=== PATIENT | female | born 1950 | race Caucasian/White ===

== ENCOUNTER → 2018-03-25 07:52 | Outpatient (CLI) | payer MEDICARE, OTHER, SELFPAY ==
--- NOTE | 2018-03-25 | DI.MG.S_ITS ---
BILATERAL DIGITAL SCREENING MAMMOGRAM 3D/2D WITH CAD: 03/25/2018 CLINICAL: Routine screening. Family history of breast cancer. Comparison is made to exams dated: 03/25/2017 mammogram, 02/29/2016 mammogram, and 01/10/2015 mammogram - [facility]. The tissue of both breasts is heterogeneously dense. This may lower the sensitivity of mammography. Current study was also evaluated with a Computer Aided Detection (CAD) system. There is 0.5 cm oval low density focal asymmetry with a circumscribed margin in the left breast at 7 o'clock anterior depth. No other significant masses, calcifications, or other findings are seen in either breast. IMPRESSION: INCOMPLETE: NEEDS ADDITIONAL IMAGING EVALUATION The 0.5 cm oval low density focal asymmetry in the left breast is indeterminate. An ultrasound is recommended. This exam was interpreted at Station ID: [id number]. NOTE: For mammograms, a report in lay terms will be sent to the patient. Approximately 15% of breast malignancies will not be visualized mammographically. In the management of a palpable breast mass, a negative mammogram must not discourage biopsy of a clinically suspicious lesion. Electronically Signed By: Jacob li/gilbert:03/25/2018 11:58:46 letter sent: Need Ultrasound ACR BI-RADS Category 0: Incomplete [id number]
== END ==
PROVIDERS: Family Provider Orthopaedic Surgery; PCP Family Medicine; Visit Provider Family Medicine
DX: Z12.31 Encounter for screening mammogram for malignant neoplasm of breast (principal); Z80.3 Family history of malignant neoplasm of breast
CPT/HCPCS: 77063; 77067

== ENCOUNTER → 2018-04-08 15:06 | Outpatient (CLI) | payer MEDICARE, OTHER, SELFPAY ==
--- NOTE | 2018-04-08 | DI.US.S_ITS ---
ULTRASOUND OF LEFT BREAST: 04/08/2018 CLINICAL: Patient returns for additional imaging over a suspected mass in the left breast. Comparison is made to exams dated: 03/25/2018 mammogram, 03/25/2017 mammogram, and 02/29/2016 mammogram - [facility]. Color flow ultrasound of the left breast was performed on the areas of interest. Pena scale images of the real-time examination were reviewed. IMPRESSION: NEGATIVE There is no sonographic evidence of malignancy. There is no sonographic abnormality seen in the left breast to correspond with the mammography finding which likely represents an ectatic blood vessel. Of note, this finding is present on multiple prior studies and has demonstrated stability over time. A 1 year screening mammogram is recommended. This exam was interpreted at Station ID: [id number]. Electronically Signed By: Britney garcia/:04/08/2018 16:01:32 letter sent: Normal Exam Ultrasound BI-RADS: 1 Negative
== END ==
PROVIDERS: PCP Family Medicine; Visit Provider Family Medicine
DX: R92.8 Other abnormal and inconclusive findings on diagnostic imaging of breast (principal)
CPT/HCPCS: 76642

== ENCOUNTER → 2018-06-08 09:05 | Outpatient (CLI) | payer MEDICARE, OTHER, SELFPAY ==
--- NOTE | 2018-06-08 | DI.CT.S_ITS ---
PROCEDURE: CT UE RT WO CON INDICATIONS: CHRONIC RIGHT SHOULDER PAIN TECHNIQUE: Noncontrast 1-1.5 mm thick sections acquired from the acromioclavicular joint to the inferior scapula, with coronal and sagittal reformatting. COMPARISON: None. FINDINGS: Image quality: Diagnostic. Bones: There is no acute fracture, dislocation, or suspicious osseous lesion present involving the osseous structures of the right shoulder. There are severe degenerative changes of the glenohumeral joint with prominent joint space narrowing, subchondral sclerosis, moderate-sized marginal osteophytes, and areas of degenerative cystic change. Mild articular surface of bony remodeling is present. There are severe degenerative changes of the acromioclavicular joint with prominent origin of osteophytes and areas of degenerative cystic change. The clavicle, imag right ribs comment imaged portions of the sternum, and imaged portions of the right spine are grossly unremarkable. Soft tissues: There is a prominent right shoulder joint effusion, containing small intra-articular joint bodies. No soft tissue masses are appreciated. No drainable or loculated fluid collections are evident. No significant lymphadenopathy is evident within the axilla. Please note that the ligaments, tendons, and cartilaginous structures of the shoulder are not adequately evaluated on CT. No significant atrophy of the rotator cuff muscles is evident to suggest a long-standing rotator cuff injury. Included portions of the right lung and mediastinum appear to be within normal limits. IMPRESSION: 1. No acute osseous abnormality of the right shoulder. 2. Severe degenerative changes of the glenohumeral and acromioclavicular joints. 3. Moderate sized glenohumeral joint effusion. 4. No significant rotator cuff muscle atrophy is appreciated to suggest a chronic rotator cuff injury. Dictated by: Jadon Briceño M.D. on 06/08/2018 at 8:49 Approved by: Jadon Briceño M.D. on 06/08/2018 at 9:14
== END ==
PROVIDERS: PCP Family Medicine; Visit Provider Orthopaedic Surgery
DX: M25.511 Pain in right shoulder (principal); M19.011 Primary osteoarthritis, right shoulder; M25.411 Effusion, right shoulder; G89.29 Other chronic pain
CPT/HCPCS: 73200

== ENCOUNTER → 2018-09-12 08:21 | Outpatient (CLI) | payer MEDICARE, OTHER, SELFPAY ==
[2018-09-12 08:38] LABS: RBC Urine None Seen (0-5/HPF)
[2018-09-12 09:23] LABS: Appearance Urine UA CLEAR; Bilirubin Urine UA NEGATIVE (NEGATIVE); Color Urine UA YELLOW; Glucose Urine UA NEGATIVE (Negative); Ketones Urine UA NEGATIVE (NEGATIVE); Leukocyte Esterase Urine UA NEGATIVE (NEGATIVE); Nitrite Urine UA NEGATIVE (Negative); Occult Blood Urine UA NEGATIVE (Negative); Protein Urine UA NEGATIVE (Negative); Specific Gravity Urine UA 1.025 (1.000-1.035); Urobilinogen Urine UA 0.2 E.U./dL (0.2)
[2018-09-12 09:47] LABS: Bacteria Urine Occasional (0-1); Culture Indicated Urine Cult Not Indicated; Squamous Epithelial Cell Urine 1-5 /HPF (0-5/HPF); WBC Urine 0-1/HPF (0-5/HPF)
[2018-09-12 10:09] LABS: Hemoglobin 12.9 g/dL (12.0-16.0); Mean Corpuscular Hemoglobin 31.1 PG (26-34); Mean Corpuscular Volume 91.6 fL (80-100); Platelet Count 258 X10^3/uL (150-400); Red Blood Cell Count 4.15 X10^6/uL (4.0-5.2); Red Cell Distribution Width 13.5 % (11.6-14.8)
[2018-09-12 10:24] LABS: Carbon Dioxide 28 mmol/L (22-32); Estimated Glomerular Filt Rate > 60.0 mL/min (>60); HEMOLYSIS < 15 (0-50); Sodium 140 mmol/L (137-145)
[2018-09-12 10:30] LABS: Transferrin 265 mg/dL (206-381)
[2018-09-12 10:48] LABS: Blood Urea Nitrogen 20 mg/dL (7-17); Calcium 9.9 mg/dL (8.4-10.2); Chloride 105 mmol/L (98-107); Glucose 84 mg/dL (80-110)
[2018-09-12 10:50] LABS: Hemoglobin A1C% w Est Avg Glu 5.1 % (4.0-6.0)
== END ==
PROVIDERS: PCP Family Medicine; Visit Provider Orthopaedic Surgery
DX: Z01.818 Encounter for other preprocedural examination (principal); E61.1 Iron deficiency; N39.0 Urinary tract infection, site not specified; R73.9 Hyperglycemia, unspecified
CPT/HCPCS: 36415; 80048; 81001; 83036; 84466; 85027; 93005; 93010

== ENCOUNTER 2018-09-28 06:07 | Inpatient (IN) | payer MEDICARE, OTHER, SELFPAY ==
[2018-09-15 08:28] VITALS: BMI 43.3
[2018-09-28] VITALS (20 sets, daily range): BP systolic 105–159; BP diastolic 56–82; PULSE 66–88; RESP 8–25; TEMP 36–37.3; O2SAT 93–100; BMI 41.7
--- NOTE | 2018-09-28 06:40 | DI.RAD.S_ITS ---
PROCEDURE: XR SHOULDER RT MIN 2V INDICATIONS: post op TECHNIQUE: 2 views of the shoulder were acquired. COMPARISON: [facility], , SHOULDER MINIMUM 2VIEW RIGHT, 07/10/2009, 16:35. FINDINGS: Bones: No fractures or dislocations. Expected postsurgical changes of right total shoulder arthroplasty. No suspicious bony lesions. Visualized ribs appear intact. Soft tissues: No suspicious soft tissue calcifications. IMPRESSION: Normal postoperative alignment after right shoulder arthroplasty, with a surgical drain overlying the operative bed. Dictated by: Sawyer Do M.D. on 09/28/2018 at 10:48 Approved by: Sawyer Do M.D. on 09/28/2018 at 10:50
[2018-09-28] MEDS: ACETAMINOPHEN 325 MG TABLET 975 MG PO ×3 (06:52→19:51)
[2018-09-28] MEDS: PREGABALIN 75 MG CAPSULE PO (06:52)
[2018-09-28] MEDS: CELECOXIB 200 MG CAPSULE PO (06:52)
[2018-09-28] MEDS: LACTATED RINGERS 1,000 ML 42 ML IV ×2 (07:00→10:38)
[2018-09-28] MEDS: MIDAZOLAM 2 MG/2 ML VIAL IV (07:36)
--- NOTE | 2018-09-28 07:37 | PM.PREOP ---
Pre-operative Note Interval Note History & Physical reviewed/Exam performed by Physician: Yes Changes to H&P: No
--- NOTE | 2018-09-28 07:39 | PM.OP.1 ---
Operative Date/Time/Diagnoses Date of procedure: 09/28/18 Time of procedure: 09:30 Pre-op diagnosis: Right shoulder osteoarthritis Post-op diagnosis: same Procedure & Clinicians Procedure: Right total shoulder replacement Same procedure as scheduled: Yes Indications: The patient has had progressively worsening right shoulder pain with radiographic changes consistent with arthritis. Non-operative management has failed and the patient has requested total shoulder replacement. The risks, benefits and alternatives to surgery were discussed with the patient prior to proceeding. Risks discussed included, but were not limited to, failure to relieve pain, stiffness, infection, nerve damage, deep venous thrombosis, pulmonary embolism, stroke, coma, heart attack, permanent paralysis and , as well as the potential need for eventual revision of the prosthetic. Surgeon: Ike Jackson [employer] Con[employer] Ironworker: Samia Zavala Click Yes if Unassisted: No Anesthesia Type: General, Peripheral nerve block and Local Operative Notes Findings: Significant osteoarthritis with large osteophytes. Closure Type: primary Specimen(s): none sent Prosthetic devices, grafts, tissues, transplants, or devices: Implants used in this procedure were manufactured by the [employer] and included an Altivate short stem total shoulder system with a size 12 humeral stem, a neutral humeral neck, a 46 x 16 mm offset humeral head and a 46 mm E plus all-polyethylene pegged glenoid. Applied: drain(s) and implant(s) Estimated Blood Loss (mL): 250 Blood products transfused: none Procedure in detail: The patient was seen in the pre-operative area, where the patient identified the right shoulder as the operative site and this was marked with my initials. The patient received pre-operative antibiotics, underwent an interscalene block, and was taken to the operating room and placed on the operative table in the supine position. After satisfactory anesthesia, a full ?time out? was performed. The patient was repositioned in the ?beach chair? position using a dedicated positioner. All pressure points were well padded, and the knees were slightly bent to prevent tension on the sciatic nerves. The right arm was prepared from the fingers to the base of the neck with ChloroPrep in the usual fashion and draped through sterile drapes. An approximately 15 cm incision was created, starting at the clavicle above the coracoid process and extended towards the deltoid insertion. The deltopectoral interval was used to access the shoulder. The cephalic vein was taken medially. A self retaining retractor was placed. The upper centimeter of the pectoralis major tendon was released. The ?three sisters? were identified and cauterized. The axillary nerve was palpated and protected throughout the case. The biceps was released from its groove and tenodesed over the top of the pectoralis major tendon. The subscapularis was released from the lesser tuberosity with a subscapularis peel and tagged for later repair. The shoulder was dislocated and a cutting guide was used for the proximal humeral osteotomy in 30 degrees of retroversion. A starter reamer was used followed by the cylindrical reamers. This continued in larger sizes until cortical bite was achieved. Sequential broaching was then performed until a line to line fit with the reamer occurred. A proximal humeral protector was then placed. We then removed the self-retaining retractor and placed retractors to access the glenoid. The subscapularis was released with a ?360 degree release? with care being taken to protect the axillary nerve with the inferior portion of this procedure. The remnant of labrum and biceps stump were removed. The appropriate size reamer was chosen with the glenoid sizer, and the guide pin placed. The glenoid was appropriately reamed. The guide for the peripheral holes was used. It was noted that the anteroinferior hole developed a nondisplaced fracture between the hole and the anterior glenoid rim. As a result, this hole was not filled with bone cement. This small crack did not appear to compromise stability of the implant. The center hole was enlarged. The trial glenoid was placed with good stability. We then cemented the final implant into place after irrigating the peg holes and drying them with thrombin-soaked Gelfoam. We returned our attention to the humerus, a trial humeral head was applied and a trial reduction performed. Stability was checked with 50% posterior translation with spontaneous reduction, 45? external rotation at the side with the subscapularis in the repaired position and 70? of internal rotation in the ?scarecrow position?. This was felt to be satisfactory and the appropriate implants were opened. Five holes were drilled along the humeral osteotomy and #2 Ethibond sutures placed for eventual subscapularis repair. The humeral prosthetic was impacted into the humerus. The humeral head was applied when the stem was still slightly proud and impacted to both seat the head and fully seat the stem. The joint was relocated one final time. The joint was irrigated and the subscapularis repaired to the previously placed sutures using Raffi-Aquiles sutures. The top of the subscapularis was closed to the leading edge of the supraspinatus with a figure of 8 #2 TiCron to close the rotator interval. A deep drain was placed and brought out supero-laterally. The deltopectoral interval was closed with interrupted 0 Vicryl. The subcutaneous layer was closed with 3-0 Vicryl, and the skin with a running 3-0 V-Lock suture and SteriStrips. An Aquacel Ag dressing was applied, the patient?s arm was placed in a sling, and the patient was taken to recovery having tolerated the procedure well. Complications: other (Nondisplaced crack between the anteroinferior hole and the anterior glenoid rim as noted above.) Condition: stable Disposition: PACU Plan for aftercare: The patient will be maintained on a standard total shoulder replacement protocol with passive range of motion limited to 90 degrees forward flexion, 0 degrees external rotation at the side, 0 degrees abduction and internal rotation to the body. The patient will receive aspirin and sequential compression devices for DVT prophylaxis. The patient will be discharged home when safe for the home environment, likely tomorrow.
--- NOTE | 2018-09-28 07:52 | SUR.PREOP ---
Block start time [0736] . Monitoring initiated and maintained throughout procedure. Oxygen and medications given per anesthesiologist instructions. Patient remained stable throughout procedure, no adverse reactions noted. Block end time [0748].
[2018-09-28] MEDS: CEFAZOLIN 2 GM/100 ML FROZ.PIGGY IV (08:05)
--- NOTE | 2018-09-28 08:29 | SUR.OPER ---
Beach chair with Schlein shoulder positioner. Lower body on padded OR bed. Head in foam padded head cradle, secured with straps. Non-operative arm secured <90 degrees abduction. Pillow under knees. Safety belt at thigh. Cloth tape over blanket over lower legs.
[2018-09-28] MEDS: BUPIVACAINE 0.5% W/ EPI (PF) VIAL 30 ML INJ (08:34)
[2018-09-28] MEDS: THROMBIN (RECOMBINANT) 5,000 UNIT VIAL 5000 UNIT TOP (08:34)
[2018-09-28] MEDS: fentaNYL 100 MCG/2 ML INJ 50 MCG IV ×4 (10:11→10:37)
[2018-09-28] MEDS: HYDROMORPHONE 2 MG INJ 0.25 MG IV ×6 (10:15→10:44)
--- NOTE | 2018-09-28 10:52 | SUR.PHASEI ---
REPORT CALLED TO [facility] ON ACUTE CARE FLOOR. PT IN STABLE CONDITION, VSS. IV SITE CLEAR AND INFUSING WITHOUT DIFFICULTLY. DRSG TO SURGICAL SITE OBSERVED TO BE C/D/I. HEMAVAC DRAIN IN PLACE AND DRAINING RED BLOOD. PT ABLE TO MOVE OPERATIVE EXTREMITY FINGERS, WARM TO TOUCH, PINK IN COLOR AND +PULSE. OPERATIVE ARM IN SLING. PT TOLERATING ICE CHIPS WITHOUT DIFFICULTLY AND DENIES ANY NAUSEA. PT APPEARS COMFORTABLE AT THIS TIME.
[2018-09-28] MEDS: LACTATED RINGERS 1,000 ML 125 ML IV ×2 (11:38→19:44)
[2018-09-28] MEDS: OXYCODONE IR 5 MG TABLET PO ×4 (13:09→23:45)
--- NOTE | 2018-09-28 14:15 | PC.NURSE ---
Post-op: Arrived to room 210 at 1110. Awake and alert, oriented X3. Reports some numbness/tingling residual in RUE, but sensation is returning. Strong radial pulses, cap refill <2 sec, hands warm and pink. Dressing to R shoulder C/D/I, sling in place and arm supported with pillow underneath when in bed. Hemovac compressed with sanguinous drainage noted. Medicated with Tylenol and Oxycodone for R shoulder pain, tolerating PO's without N/V. Just worked with PT and is back in bed. Stand-by assist per PT. Ice pack to R shoulder. Voided when OOB. Oriented to room and call light, able to make needs known. Bed alarm on, call light in reach.
--- NOTE | 2018-09-28 14:47 | PT.IIE ---
Current Diagnoses Primary osteoarthritis, right shoulder (09/28/18) Surgery Performed Operation Date: 09/28/18 07:45 Actual Procedures p Total Shoulder Arthroplasty(Right) - Ike Jackson MD Surgical History (Last Updated 09/15/18 @ 09:14 by Mary Ashton RN) History of ankle surgery (Acute) History of arthroplasty of right knee (Acute ~03/2012) History of arthroscopy of both knees (Acute) History of bilateral carpal tunnel release (Acute) History of colonoscopy (Acute) Hx of appendectomy (Acute ~1968) Hx of tonsillectomy (Acute) Status post bilateral cataract extraction (Acute) Status post epidural steroid injection (Acute) Medical History (Last Updated 09/15/18 @ 09:14 by Mary Ashton RN) Snoring (Inactive) Arthritis (Acute) Depression (Acute) Diverticulosis (Acute) H/O: hysterectomy (Acute ~1975) Osteoarthritis (Acute) Morbid obesity with body mass index of 40.0-49.9 (Chronic) Obstructive sleep apnea of adult (Chronic) Physical Therapy Inpatient Evaluation/Re-Eval M1 PT/OT-IP Prior Functional Status Start: 09/28/18 12:16 Freq: NEEDED Status: Active Protocol: Document 09/28/18 14:23 RS (Rec: 09/28/18 14:32 RS [id number]) Medical Review Prior Functional Status Medical History Reviewed Yes Diet/Fluid Consistency Regular Communication no known deficits Mobility and Gait ind without AD Activities of Daily Living and IADL's ind Social History Household Members spouse Living Arrangements House Number of Floors (Floors) One Floor Number of Stairs To Enter/Railing? 4STE, bilat rails M2 PT-IP Current Condition Start: 09/28/18 12:16 Freq: NEEDED Status: Active Protocol: Document 09/28/18 14:23 RS (Rec: 09/28/18 14:32 RS [id number]) Physical Therapy Current Condition Current Condition Evaluation Date 09/28/18 Treatment Diagnosis R TSA Onset Date 09/28/18 Precautions Shoulder Precautions Sling PROM Internal Rotation to Body No External Rotation No Abduction Forward Flexion to 90 degrees Pendulums Weight Bearing Status Weight Bearing Status Non-Weight Bearing M3 PT-IP Subjective Start: 09/28/18 12:16 Freq: NEEDED Status: Active Protocol: Document 09/28/18 14:23 RS (Rec: 09/28/18 14:32 RS [id number]) Subjective Physical Therapy Visit Type Type Initial Evaluation Visit Stop Time 14:23 M4 PT-IP Mobility and Gait Start: 09/28/18 12:16 Freq: NEEDED Status: Active Protocol: Document 09/28/18 14:23 RS (Rec: 09/28/18 14:47 RS [id number]) PT-Bed Mobility Assessment Supine to Sit Supine to Sit Standby Assistance Head of Bed Elevated Sit to Supine Sit to Supine Standby Assistance Scooting Scooting to Edge of Bed Standby Assistance PT-Transfer Assessment Sit to and From Stand Sit to and from Stand Standby Assistance Equipment Transfer Assistive Device None Transfers Transfer Destination Bed Toilet Transfer Technique walked and turn to sit Transfer Ability Level of Assist Standby Assistance Comments Mobility Comments Pt needing extra time to scoot to EOB, however, pt able to do all bed mobility and transfers without additional physical assist. Able to maintain NWB RUE. Gait Assessment Gait Gait Assistance Required: Standby Assistance Distance (Feet) 100 Assistive Devices Assistive Device Gait Belt Gait Deviations General Gait Pattern Decreased Stride Length Wide Based Gait Comments Gait Comments Pt's gait is slow with wide and short steps, but overall stable, no LOB. Stair Climbing Assessment Comments Stair Climbing Comments not tested PT-Balance Assessment Sitting Balance and Reactions Static Sitting Balance Ability Normal Dynamic Sitting Balance Ability Normal Standing Balance and Reactions Static Standing Balance Ability Normal Dynamic Standing Balance Ability Good Device Used none M5 PT-IP Objective Assessments Start: 09/28/18 12:16 Freq: NEEDED Status: Active Protocol: Document 09/28/18 14:23 RS (Rec: 09/28/18 14:47 RS [id number]) Orientation Orientation/Cognition Level of Alertness Alert Orientation Name Language Function Ability No Deficits Noted Safety Awareness Understands Safety Issues Memory Description No Deficits Noted Gross Range of Motion Upper Extremity ROM Assessment Right Impaired Lower Extremity ROM Assessment Within Functional Limits Strength Upper Extremity Strength Assessment Right Impaired Lower Extremity Strength Assessment Within Functional Limits M6 PT-IP Treatment Start: 09/28/18 12:16 Freq: NEEDED Status: Active Protocol: Document 09/28/18 14:23 RS (Rec: 09/28/18 14:47 RS [id number]) Physical Therapy Treatment Education Education Provided Precautions Weight Bearing Status Safety M7 PT-IP Assessment and Plan Start: 09/28/18 12:16 Freq: NEEDED Status: Active Protocol: Document 09/28/18 14:23 RS (Rec: 09/28/18 14:47 RS [id number]) PT Summary Assessment and Plan Potential Rehabilitation Potential Excellent Status of Condition at Evaluation Stable Summary Impairments ROM Strength Gait Activity Tolerance Assessment Summary Pt is POD#0 R TSA. Pt able to mobilize with SBA, not quite ready to trial stairs. Pt needs more time for all mobility but is steady and able to maintain RUE precautions. Pt will be safe to discharge home tomorrow (or when medically ready) after one more PT session for stair trial. Pt will benefit from OPPT once cleared by ortho surgeon. Goals Bed Mobility Goal Independent Transfer Goal Independent Gait Goal Independent Gait Distance 150 Other Goals up/down 4 steps w/ bilat rails w/ SBA Days to Meet Goals 2 Frequency of Treatment Frequency Of Treatment Once a Day Treatment Plan Physical Therapy Treatment Plan Bed Mobility Training Transfer Training Gait Training Therapeutic Exercise Balance Retraining Post Op Education Discharge Planning Hot or Cold Pack Neuromuscular Re-ed Coordination Retraining Manual Therapy Other Recommendations and Next Treatment likely only 1 more session Focus Friday for stairs then can d/ c Recommendations To Nursing Amount of Assist Needed Standby Assistance Discharge Recommendations PT Discharge Recommendations Home with Assistance Outpatient PT
[2018-09-28] MEDS: DOCUSATE 100 MG CAPSULE PO (19:51)
[2018-09-28] MEDS: ASPIRIN EC 81 MG TABLET PO (19:51)
--- NOTE | 2018-09-28 22:55 | PC.NURSE ---
Pt A/O x4, right shoulder aquacell CDI, sling in place, CMS+, radial P+, nurse clinician strong. HV-25mL sang out. 96%RA. L hand LR @ 125, to be DC'd in AM. percolone 5mg PO @ 1610 and 2000 effective for pain. SBA to BRP. Bed alarm on
[2018-09-29] MEDS: OXYCODONE IR 5 MG TABLET PO ×2 (04:17→08:11)
[2018-09-29 05:52] LABS: Hematocrit 32.2 % (36-46); Hemoglobin 11.2 g/dL (12.0-16.0); Mean Corpuscular HGB Conc 34.7 % (30-36); Mean Corpuscular Hemoglobin 31.4 PG (26-34); Mean Corpuscular Volume 90.5 fL (80-100); Platelet Count 267 X10^3/uL (150-400); Red Blood Cell Count 3.55 X10^6/uL (4.0-5.2); Red Cell Distribution Width 12.9 % (11.6-14.8); White Blood Cell Count 11.6 X10^3/uL (4.5-11.0)
[2018-09-29 05:54] VITALS: BP 103/54; PULSE 77; RESP 16; TEMP 36.9; O2SAT 93
[2018-09-29] MEDS: ACETAMINOPHEN 325 MG TABLET 975 MG PO (05:58)
[2018-09-29 07:30] VITALS: BP 116/54; PULSE 73; RESP 18; TEMP 36.9; O2SAT 95
--- NOTE | 2018-09-29 07:51 | PM.DS.1 ---
History of Present Illness Date Patient Seen: 09/29/18 Time Patient Seen: 07:51 Chief complaint: [id number] Narrative: The history and physical are contained in the chart and a previously completed note. Please refer to that note for this information. Discharge Providers Date of admission: 09/28/18 06:07 Discharge Date: 09/29/18 Primary care physician: Alma Rosa Ramírez MD Consults: 09/28/18 11:22 Consult to Discharge Planning Routine Comment: Consult to Physical Therapy Evaluate & Treat Comment: Physician Instructions: Evaluate and Treat Discharge provider: Ike Jackson MD Summary Discharge Diagnosis: 1. Right shoulder osteoarthritis 2. Nondisplaced fracture of the right glenoid with preparation of the glenoid for implant placement 3. Mild post hemorrhagic anemia Hospital Course: The patient was admitted to the hospital and taken directly to the operating room on September 28, 2018. She underwent a right total shoulder replacement. During preparation of the glenoid a crack appeared between the anterior inferior hole and the anterior edge of the glenoid. This was nondisplaced and did not affect implant stability. The patient had initial difficulty with pain control but this resolved and on postoperative day 1 she was ready for discharge home. Status at Discharge Cognitive/behavioral status at discharge: oriented Functional status at discharge: independent ambulation Overall status at discharge: patient is progressing back to baseline Time Spent with Patient Less than 30 minutes Exam Vital Signs (past 8 hours): - 09/29/18 05:54 Temperature 98.4 F Pulse Rate 77 Respiratory Rate 16 Blood Pressure 103/54 L Pulse Oximetry 93 Oxygen Delivery Method Room Air Oxygen Flow Rate 0 Narrative Exam Narrative: Right shoulder wound is dressed. There is no drainage on the bandage. Light touch is intact in the radial, ulnar, median, musculocutaneous and axillary nerve distribution. She can extend her thumb, abduct her thumb, abduct her fingers and can fire her biceps and deltoid. Objective Labs Result Diagrams: 09/29/18 05:26 Labs: Laboratory Results - last 24 hr 09/29/18 05:26 WBC 11.6 H RBC 3.55 L Hgb 11.2 L Hct 32.2 L MCV 90.5 MCH 31.4 MCHC 34.7 RDW 12.9 Plt Count 267 Discharge Plan Discharge Plan Patient Disposition: Home Discharge Med Rec/Prescriptions Prescriptions: New acetaminophen 325 mg Tablet 975 mg PO TID 30 Days Qty: 270 RF: 0 aspirin 81 mg Tablet,Delayed Release (Dr/Ec) 81 mg PO BID 42 Days Qty: 84 RF: 0 oxycodone 5 mg Tablet 5 mg PO Q3HR PRN (Reason: Pain, Moderate (4-6)) Qty: 40 RF: 0 Continued TheraTears 0.25 % Drops 1 drp EYE-BOTH PRN PRN (Reason: Dry Eye(S)) Qty: 0 RF: 0 Vitamin D3 4,000 unit Capsule 4,000 unit PO DAILY RF: 0 Respironics DreamStation CPAP Qty: 1 RF: 0 Follow up/Referrals: Alma Rosa Ramírez MD [Primary Care Provider] - Provider Discharge Instructions Diet: Diet as Tolerated and Regular Activity: You may use her right hand in front of your body below shoulder level. You may remove the sling for pendulum exercises and for hygiene. Otherwise leave the sling in place. Cold/Heat Therapy: Apply ice to the right shoulder for 15 minutes of every hour as needed for pain. Skin/Wound/Dressing Care Report to your healthcare provider any signs of infection, such as:: chills, fever, night sweats, increased pain, unusual drainage and unusual redness Dressing: Leave the dressing in place until your follow-up. You may shower with the dressing in place. If the center strip of the dressing becomes saturated with either water or blood please call the office to have it changed. Visit Report/Discharge Packet Instructions: DI for Shoulder Replacement Stand Alone Forms: Surgery Discharge Discharge Data Primary Care Provider: Alma Rosa Ramírez Attending Provider: Ike Jackson Admit Date/Time: 09/28/18 06:07 Quality VTE Deep Vein Thrombosis/Pulmonary Embolism Present on Admission: No
[2018-09-29] MEDS: ASPIRIN EC 81 MG TABLET PO (08:11)
[2018-09-29] MEDS: DOCUSATE 100 MG CAPSULE PO (08:11)
--- NOTE | 2018-09-29 08:49 | PC.NURSE ---
Addendum entered by Zuri Dyson R.N. 09/29/18 10:57: Discharge: IV dc'd intact earlier this morning. Reviewed all d/c instructions thoroughly with patient and . She filled her scripts prior to discharge and has them ready at home. Patient understands to call MD w/ s/sx infection, or with any other concerns that arise prior to follow up. Verbalized understanding of all information and stated no further questions. Walked out to private vehicle accompanied by nursing staff. All personal belongings collected and sent home with patient. Addendum entered by Zuri Dyson R.N. 09/29/18 09:21: Patient was thinking that OT was going to see her today before she leaves. She had no OT order. This film writer spoke to Dr Jackson (via his nurse) and he said that he would only typically order OT if PT deemed it necessary. This film writer will confirm with PT, but based on discussion earlier this morning it didn't sound like PT thought it was indicated. Patient resting quietly in bed with eyes closed. Respirations regular and unlabored, 0 on FLACC score. Call light in reach. Original Note: Shift summary: Awake and alert, oriented X3. Pain in R shoulder well-managed with scheduled Tylenol, PRN Oxycodone and ice pack. RUE in sling, supported by pillows. Reports normal sensation in all extremities, strong radial pulses, cap refill <2 sec. Dressing to R shoulder C/D/I. Hemovac dc'd per new order, good hemostasis. Lungs CTA, HRR. Denies N/V, tolerating PO's well. IV dc'd intact (per patient request) w/ plan to d/c home later today. Resting back in bed after sitting up for breakfast. Agrees to call if she needs to get OOB. Call light in reach.
--- NOTE | 2018-09-29 10:44 | PT.IPTN ---
Current Diagnoses Primary osteoarthritis, right shoulder (09/28/18) Surgery Performed Operation Date: 09/28/18 07:45 Actual Procedures p Total Shoulder Arthroplasty(Right) - Ike Jackson MD Physical Therapy Treatment Note M2 PT-IP Current Condition Start: 09/28/18 12:16 Freq: NEEDED Status: Active Protocol: Document 09/28/18 14:23 RS (Rec: 09/28/18 14:32 RS [id number]) Physical Therapy Current Condition Current Condition Evaluation Date 09/28/18 Treatment Diagnosis R TSA Onset Date 09/28/18 Precautions Shoulder Precautions Sling PROM Internal Rotation to Body No External Rotation No Abduction Forward Flexion to 90 degrees Pendulums Weight Bearing Status Weight Bearing Status Non-Weight Bearing M3 PT-IP Subjective Start: 09/28/18 12:16 Freq: NEEDED Status: Active Protocol: Document 09/29/18 10:10 CLB (Rec: 09/29/18 10:44 CLB [id number]) Subjective Physical Therapy Visit Type Type Treatment Note Visit Start Time 10:10 Visit Stop Time 10:25 Total Visit Minutes 15 Number of MATHEMATICS LECTURER Visits 1 Physical Therapy Visit Comments Patient Comments Pt eager to trial stairs and go home. Therapy Pain Assessment Pain When Pain Assessed At Rest Pain Present Pain Present Denied Pain M4 PT-IP Mobility and Gait Start: 09/28/18 12:16 Freq: NEEDED Status: Active Protocol: Document 09/29/18 10:10 CLB (Rec: 09/29/18 10:44 CLB [id number]) PT-Bed Mobility Assessment Supine to Sit Supine to Sit Standby Assistance Head of Bed Elevated Sit to Supine Sit to Supine Standby Assistance Scooting Scooting to Edge of Bed Standby Assistance PT-Transfer Assessment Sit to and From Stand Sit to and from Stand Standby Assistance Equipment Transfer Assistive Device None Transfers Transfer Destination Bed Transfer Technique walked and turn to sit Transfer Ability Level of Assist Standby Assistance Comments Mobility Comments Pt required SBA only for all bed mobility and transfer. Gait Assessment Gait Gait Assistance Required: Standby Assistance Distance (Feet) 150 Assistive Devices Assistive Device Gait Belt Gait Deviations General Gait Pattern Decreased Stride Length Wide Based Gait Comments Gait Comments Pt continues to have good balance and safety awareness w /o LOB with ambulation. Stair Climbing Assessment Evaluation Level of Assist On Stairs Standby Assistance Devices Stair Climbing Assistive Devices Left Railing Technique/Endurance Stair Climbing Direction Ascend and Descend Stair Climbing Technique Step to Step Number of Steps Climbed 3 Query Text: Stair Climbing Set # Repetitions (reps) 2 Comments Stair Climbing Comments Pt safe with stair climbing. present for SBA. PT-Balance Assessment Sitting Balance and Reactions Static Sitting Balance Ability Normal Dynamic Sitting Balance Ability Normal Standing Balance and Reactions Static Standing Balance Ability Normal Dynamic Standing Balance Ability Good Device Used none M5 PT-IP Objective Assessments Start: 09/28/18 12:16 Freq: NEEDED Status: Active Protocol: Document 09/28/18 14:23 RS (Rec: 09/28/18 14:47 RS [id number]) Orientation Orientation/Cognition Level of Alertness Alert Orientation Name Language Function Ability No Deficits Noted Safety Awareness Understands Safety Issues Memory Description No Deficits Noted Gross Range of Motion Upper Extremity ROM Assessment Right Impaired Lower Extremity ROM Assessment Within Functional Limits Strength Upper Extremity Strength Assessment Right Impaired Lower Extremity Strength Assessment Within Functional Limits M6 PT-IP Treatment Start: 09/28/18 12:16 Freq: NEEDED Status: Active Protocol: Document 09/28/18 14:23 RS (Rec: 09/28/18 14:47 RS [id number]) Physical Therapy Treatment Education Education Provided Precautions Weight Bearing Status Safety M7 PT-IP Assessment and Plan Start: 09/28/18 12:16 Freq: NEEDED Status: Active Protocol: Document 09/29/18 10:10 CLB (Rec: 09/29/18 10:44 CLB [id number]) PT Summary Assessment and Plan Potential Rehabilitation Potential Excellent Status of Condition at Evaluation Stable Summary Impairments ROM Strength Gait Activity Tolerance Assessment Summary Pt is doing well with all mobility, transfers, gait and stair climbing with SBA. present for stair climbing and is able to assist pt with SBA for stair climbing. Discussed with pt mobility of shoulder, performing pendulums and donning/doffing brace. Goals Bed Mobility Goal Independent Transfer Goal Independent Gait Goal Independent Gait Distance 150 Other Goals up/down 4 steps w/ bilat rails w/ SBA Days to Meet Goals 2 Frequency of Treatment Frequency Of Treatment Once a Day Treatment Plan Physical Therapy Treatment Plan Bed Mobility Training Transfer Training Gait Training Therapeutic Exercise Balance Retraining Post Op Education Discharge Planning Hot or Cold Pack Neuromuscular Re-ed Coordination Retraining Manual Therapy Other Recommendations and Next Treatment Pt safe to d/c home with Focus to assist. Recommendations To Nursing Amount of Assist Needed Standby Assistance Discharge Recommendations PT Discharge Recommendations Home with Assistance Outpatient PT
--- NOTE | 2018-09-29 12:07 | CM.DANOTE ---
DCP/Assessment: Reviewed chart. Patient is a 68yr old female admitted for right TSA performed on 09-28-[address] Jackson. PCP is Dr. Ramírez. Primary payor is 1)Medicare 2)[facility]. Attempted to meet with patient to explain/introduce CM team role. Patient had already discharged at time of MICROFILMING DOCUMENT PREPARER visit with no identified d/c planning needs. P: Home today. MILDRED Bravo Discharge Planning/Care Management CM Discharge Assessment Start: 09/29/18 12:04 Freq: Status: Discharge Protocol: Document 09/29/18 12:05 KJS (Rec: 09/29/18 12:07 KJS [id number]) Discharge Planning Assessment Assigned Braider Tender MILDRED Bravo Contact Information Bharti Paulino (sister) [phone] Advance Directives? No: Declines further information History Provided By Patient Medical Record Prior Living Arrangements House Household Members spouse Type of transporation used prior to Drives own vehicle admit Independent with ADL's Yes Is patient alert and oriented? Yes Caregiver for Another No Barriers to Discharge No Discharge Plan Home Additional Comment None requested Review Status In Process Next Review Type Continued Stay Review Pre-Anesthesia Assessment Start: 09/15/18 08:28 Freq: Status: Discharge Protocol: Document 09/15/18 08:28 CAB (Rec: 09/15/18 09:32 CAB [id number]) Pre-Anesthesia Assessment Patient Also Known As (NENITA) Zenobia Patient Information Reviewed Via Phone Assessment Assessment Completed With Patient Diagnostic Results BMP/CMP CBC EKG Urinalysis Comment Labs/EKG @ [facility] 09/12/18 Primary Care Provider Alma Rosa Ramírez Seen Specialist in Last 12 Months Yes Specialist Seen Orthopedist Primary Language Slovenian Development Executive Required No Height 152.4 cm Weight 100.698 kg Body Mass Index (BMI) 43.3 Hearing Ability Normal Visual Impairment No Limitations Visual Assist Magnifying Glass Dentition Type Teeth, Natural Present Teeth, Missing Barriers to Learning None Other Aids Yes: CPAP Hx Anesthesia Reactions Yes: N/V s/p last wrist surgery Hx Family Anesthesia Reaction No Hx Malignant Hyperthermia No Hx Blood Transfusions No Anesthesia Review Requested No Sales Assistant Entertainment And Media No alcohol intake current alcohol intake frequency holidays/special occasions only Smoking Status Former smoker how long ago did patient quit smoking Quit 17-18 years ago Substance Use Type does not use Pain Present Pain Reported Musculoskeletal Symptoms Abnormal Gait Joint Pain Limited Range of Motion History of Falling (Recent or History of Yes ) Patient is completely paralyzed or No completely immobile Mental Status Oriented to own ability Is patient on oxygen? No Does patient have NAYAK/SOB No Hx Sleep Apnea Yes CPAP/BIPAP use prescribed and used routinely Will Bring CPAP/BIPAP DOS Yes Currently Taking a Beta Rodolfo No Can You Climb a Flight of Stairs Without No SOB Hx Chest Pain No Hx SOB No Hx Syncope or Dizziness No Anti-Coagulant Therapy No Has a Tavern Car Attendant No Cardiac Testing No Hx Pacemaker/ICD No Pacemaker Rep Required? No Cardiac Clearance Received Not Applicable Diet Type At Home Regular dysphagia No Bladder Pattern Incontinent, Stress Urgency Urinary Catheter Present No Hx Urinary Self Catheterization No Diabetes No Patient No Lactating No Hx Drug Resistant Organism Yes: C-diff 2017 Presence of External or Internal Medical Yes: CPAP, right knee Devices prosthesis, bilateral eye lens Have you traveled outside the [facility] in the last 30 days? Marital Status Lives With spouse Prior Living Arrangements House Number of Floors (Floors) Two Floors Support System Spouse Does the Patient Have Assistance After Yes Surgery Patient Discharge Plan Description Return Home Comment Pt advised overnight length of stay per surgeon's office Feels Safe in Current Environment Yes Been Physically Hurt or Threatened By a No Person in Current Environment Do you have thoughts of harming yourself None or others? Are you currently considering suicide? No Do you have a plan to hurt yourself or No Plan others? Do You Have Any Spiritual Beliefs That No May Affect Your HC Choices? Do You Have Any Cultural Practices That No May Affect Your HC Choices? Spiritual Referral None Who Can We Speak to About Patient's Care Family, friends Identifying Code for Release of Patient Declines to issue Information Health Care Proxy/Next of Kin Evaristo () Health Care Proxy Emergency Contact Name Evaristo () Emergency Contact Advance Directives? No: Declines further information Power of Farm Rancher Yes Power of Farm Rancher Name Evaristo () Power of Farm Rancher PAC Instructions Bring CPAP/BIPAP Medications to take/avoid Nasal antibiotic No ETOH/petroleum product on skin DOS NPO Post-op transportation Pre-surgical wash Sturdy shoes/comfortable clothes Do not bring valuables and remove jewelry
== END 2018-09-29 10:59 | disposition home or self-care (01) | DRG 483 ==
PROVIDERS: Admitting Provider Orthopaedic Surgery; PCP Family Medicine; Visit Provider Orthopaedic Surgery
PROC: 0RQJ0ZZ Repair Right Shoulder Joint, Open Approach (ICD-10-PCS; CPT 23472; principal; 2018-09-28 07:45)
DX: M19.011 Primary osteoarthritis, right shoulder (principal); M96.69 Fracture of other bone following insertion of orthopedic implant, joint prosthesis, or bone plate; M25.711 Osteophyte, right shoulder
CPT/HCPCS: 36415; 64415; 73030; 85027; 97116; 97161; 97530; C1776; J0690; J1100; J1170; J2250; J2405; J2704; J3010

== ENCOUNTER → 2019-04-10 09:37 | Outpatient (CLI) | payer MEDICARE, OTHER, SELFPAY ==
[2018-09-28 12:59] VITALS: BMI 41.7
--- NOTE | 2019-04-10 | DI.MG.S_ITS ---
BILATERAL DIGITAL SCREENING MAMMOGRAM 3D/2D WITH CAD: 04/10/2019 CLINICAL: Routine screening. Family history of breast cancer. Comparison is made to exams dated: 03/25/2018 mammogram, 03/25/2017 mammogram, and 02/29/2016 mammogram - [facility]. The tissue of both breasts is heterogeneously dense. This may lower the sensitivity of mammography. Current study was also evaluated with a Computer Aided Detection (CAD) system. No significant masses, calcifications, or other findings are seen in either breast. There has been no significant interval change. IMPRESSION: NEGATIVE There is no mammographic evidence of malignancy. A 1 year screening mammogram is recommended. This exam was interpreted at Station ID: [id number]. NOTE: For mammograms, a report in lay terms will be sent to the patient. Approximately 15% of breast malignancies will not be visualized mammographically. In the management of a palpable breast mass, a negative mammogram must not discourage biopsy of a clinically suspicious lesion. Electronically Signed By: Mehul mejia/gilbert:04/12/2019 07:48:13 letter sent: Normal Exam ACR BI-RADS Category 1: Negative 3341F
== END ==
PROVIDERS: PCP Family Medicine; Visit Provider Family Medicine
DX: Z12.31 Encounter for screening mammogram for malignant neoplasm of breast (principal); Z80.3 Family history of malignant neoplasm of breast
CPT/HCPCS: 77063; 77067

== ENCOUNTER → 2019-09-09 07:55 | Outpatient (CLI) | payer MEDICARE, OTHER, SELFPAY ==
[2018-09-28 12:59] VITALS: BMI 41.7
--- NOTE | 2019-09-09 | DI.RAD.S_ITS ---
PROCEDURE: XR CHEST 2V INDICATIONS: shortness of breath TECHNIQUE: 2 views of the chest were acquired. COMPARISON: [facility], CHEST 2 VIEW, 07/10/2009, 16:36. [facility], CHEST 2 VIEW, 05/23/2008, 9:25. FINDINGS: Surgical changes and devices: Right humerus hemiarthroplasty. Lungs and pleura: Minimally prominent interstitial markings. No pleural effusions or pneumothorax. Mediastinum: Mediastinal contours are normal. Heart size is within normal limits. Bones and chest wall: No suspicious bony abnormalities. Soft tissues appear unremarkable. IMPRESSION: Question of pulmonary vasculature engorgement. No pleural effusion. Dictated by: Rubin Abernathy M.D. on 09/09/2019 at 8:57 Approved by: Rubin Abernathy M.D. on 09/09/2019 at 9:03
--- NOTE | 2019-09-09 | DI.ECHO.S_ITS ---
[facility]---------+ [facility] +---------+ : : [address] [place] : : : : [id number] : : : : Phone: [phone]+ Echocardiogram Report + + :Name: ZOË QUINTERO Study Date: 09/09/2019 Height: 60 in : :[facility] Weight: 224 lb : : Gender: Female BSA: 2.0 m2 : :: 1950 Age: 69 yrs BP: 145/64 mmHg: :Reason For Study: EDEMA, SHORTNESS OF BREATH : :Ordering Physician: Dr. St : :Ramírez Performed By: Marry Robin : :Referring: VENU RAMÍREZ : + + Interpretation Summary 1) Normal left ventricular size, thickness, wall motion, and systolic function (EF 60-65%). 2) Normal right ventricular size and function. 3) No significant valvular abnormalities. 4) The right ventricular systolic pressure is estimated to be at least 20 mmHg based on an estimated right atrial pressure of 3 mm Hg. 5) No prior Echo available for comparison. Procedure: A two-dimensional transthoracic echocardiogram with color flow and Doppler was performed. The study quality was technically adequate. There is no prior echocardiogram noted for this patient. The patient was in sinus bradycardia with heart rates between 50-60 bpm during the exam. Left Ventricle: The left ventricle is normal in size and wall thickness. The ejection fraction is estimated to be 60-65%. Left ventricular systolic function is normal without focal wall motion abnormalities. Right Ventricle: The right ventricle is normal in size and function. Atria: Both atria are normal in size. There is no Doppler evidence for an interatrial shunt. Mitral Valve: The mitral valve is normal in structure and function. There is mild mitral regurgitation. Aortic Valve: The aortic valve is trileaflet. The aortic valve opens well. There is no aortic valve stenosis. No aortic regurgitation is present. Tricuspid Valve: The tricuspid valve is normal in structure and function. There is mild tricuspid regurgitation. The right ventricular systolic pressure is estimated to be at least 20 mmHg based on an estimated right atrial pressure of 3 mm Hg. Pulmonic Valve: The pulmonic valve is not well seen, but is grossly normal. There is no pulmonic valvular regurgitation. Great Vessels: The aortic root is normal size. The dimensions of the ascending aorta are normal. The IVC is of normal diameter and collapses greater than 50% with a sniff. This suggests a low right atrial pressure of 3 mm Hg. Pericardium/ Pleura There is no pericardial effusion. There has been no significant change since the previous study. MMode/2D Measurements & Calculations LVIDd: 5.1 cm LVOT diam: 2.0 cm LVIDs: 3.3 cm Ao root diam: 2.9 cm FS: 35.7 % asc Aorta Diam: 2.9 cm EPSS: 0.91 cm Ao Arch Diam (Prox Trans): 2.9 cm IVSd: 0.90 cm LVPWd: 0.77 cm LV thorpe. diameter/BSA (cm/m^2): 2.6 LV sys. diameter/BSA (cm/m^2): 1.7 LA A2 area: 20.7 cm2 RA long axis: 4.9 cm LA A4 area: 15.8 cm2 RA area: 12.9 cm2 LA length (vol): 4.9 cm RA vol: 29.0 ml LA vol: 56.4 ml RA : 14.8 ml/m2 LA vol index: 28.8 ml/m2 IVC diam: 1.6 cm RVD1 (basal): 3.1 cm TAPSE: 2.3 cm Doppler Measurements & Calculations Ao V2 max: 166.8 cm/sec LVOT Max Rambo: 116.5 cm/sec Ao V2 mean: 103.0 cm/sec LV V1 max P.4 mmHg Ao max P.1 mmHg LV V1 VTI: 25.0 cm Ao mean P.1 mmHg YON(I,D): 2.4 cm2 Ao V2 VTI: 34.6 cm YON(V,D): 2.3 cm2 sev ratio: 0.72 YON indexed to BSA (cm^2/m^2): 1.2 MV E max rambo: 94.9 cm/sec TR max rambo: 207.8 cm/sec MV A max rambo: 117.5 cm/sec TR max P.3 mmHg MV E/A: 0.81 PA V2 max: 89.6 cm/sec Med Peak E' Rambo: 6.6 cm/sec PA V2 mean: 58.2 cm/sec E/E' med: 14.3 PA mean P.6 mmHg Lat Peak E' Rambo: 10.9 cm/sec E/E' lat: 8.7 E/e' average: 11.5 MV dec time: 0.26 sec SV(LVOT): 82.0 ml Reading Physician:01:07 PM
== END ==
PROVIDERS: PCP Family Medicine; Referring Provider Family Medicine; Visit Provider Family Medicine
DX: I08.1 Rheumatic disorders of both mitral and tricuspid valves (principal); R06.02 Shortness of breath; R60.9 Edema, unspecified
CPT/HCPCS: 71046; 93306

== ENCOUNTER → 2019-09-24 15:35 | Outpatient (CLI) | payer MEDICARE, OTHER, SELFPAY ==
[2018-09-28 12:59] VITALS: BMI 41.7
--- NOTE | 2019-09-24 | DI.US.S_ITS ---
PROCEDURE: US PERIPH VENOUS LOW EXTREM BI INDICATIONS: BILATERAL LEG SWELLING TECHNIQUE: Real-time imaging, as well as color and pulse Doppler interrogation, were performed of the deep veins of both legs from the inguinal ligament to the popliteal fossa. COMPARISON: None. FINDINGS: Right: The common femoral, femoral and popliteal veins are normally compressible, and free of intraluminal thrombus. Color and pulse Doppler demonstrate normal phasic intravascular flow. There is normal augmentation response to distal compression maneuver. Left: The common femoral, femoral and popliteal veins are normally compressible, and free of intraluminal thrombus. Color and pulse Doppler demonstrate normal phasic intravascular flow. There is normal augmentation response to distal compression maneuver. This study is limited by body habitus. IMPRESSION: Negative for deep venous thrombosis. Dictated by: Willie Stoddard M.D. on 09/24/2019 at 16:33 Approved by: Willie Stoddard M.D. on 09/24/2019 at 16:33
== END ==
PROVIDERS: PCP Family Medicine; Referring Provider Family Medicine; Visit Provider Family Medicine
DX: M79.89 Other specified soft tissue disorders (principal)
CPT/HCPCS: 93970

== ENCOUNTER → 2019-10-12 13:39 | Outpatient (CLI) | payer MEDICARE, OTHER, SELFPAY ==
[2018-09-28 12:59] VITALS: BMI 41.7
== END ==
PROVIDERS: PCP Family Medicine; Referring Provider Family Medicine; Visit Provider Family Medicine
DX: M85.852 Other specified disorders of bone density and structure, left thigh (principal); Z78.0 Asymptomatic menopausal state; Z87.891 Personal history of nicotine dependence
CPT/HCPCS: 77080

== ENCOUNTER → 2020-04-11 15:43 | Outpatient (CLI) | payer MEDICARE, OTHER, SELFPAY ==
[2018-09-28 12:59] VITALS: BMI 41.7
--- NOTE | 2020-04-11 | DI.MG.S_ITS ---
BILATERAL DIGITAL SCREENING MAMMOGRAM 3D/2D WITH CAD: 04/11/2020 CLINICAL: Routine screening. Family history of breast cancer. Comparison is made to exams dated: 04/10/2019 mammogram, 03/25/2018 mammogram, and 03/25/2017 mammogram - [facility]. The tissue of both breasts is heterogeneously dense. This may lower the sensitivity of mammography. Current study was also evaluated with a Computer Aided Detection (CAD) system. No significant masses, calcifications, or other findings are seen in either breast. There has been no significant interval change. IMPRESSION: NEGATIVE There is no mammographic evidence of malignancy. A 1 year screening mammogram is recommended. This exam was interpreted at Station ID: [id number]. NOTE: For mammograms, a report in lay terms will be sent to the patient. Approximately 15% of breast malignancies will not be visualized mammographically. In the management of a palpable breast mass, a negative mammogram must not discourage biopsy of a clinically suspicious lesion. Electronically Signed By: Britney garcia/gilbert:04/11/2020 16:53:29 letter sent: Normal Exam ACR BI-RADS Category 1: Negative 3341F
== END ==
PROVIDERS: PCP Family Medicine; Referring Provider Family Medicine; Visit Provider Family Medicine
DX: Z12.31 Encounter for screening mammogram for malignant neoplasm of breast (principal); Z80.3 Family history of malignant neoplasm of breast
CPT/HCPCS: 77063; 77067

== ENCOUNTER → 2020-05-17 10:31 | Outpatient (CLI) | payer MEDICARE, OTHER, SELFPAY ==
[2018-09-28 12:59] VITALS: BMI 41.7
[2020-05-17] MEDS: COVID-19 VACC #1, MRNA(MOD) 100 MCG/0.5 ML VIAL IM (10:36)
== END ==
PROVIDERS: PCP Family Medicine; Visit Provider Internal Medicine
DX: Z23 Encounter for immunization (principal)
CPT/HCPCS: 0011A; 91301

== ENCOUNTER → 2020-06-14 07:28 | Outpatient (CLI) | payer MEDICARE, OTHER, SELFPAY ==
[2018-09-28 12:59] VITALS: BMI 41.7
[2020-06-14] MEDS: COVID-19 VACC #2, MRNA(MOD) 100 MCG/0.5 ML VIAL IM (07:41)
== END ==
PROVIDERS: PCP Family Medicine; Visit Provider Internal Medicine
DX: Z23 Encounter for immunization (principal)
CPT/HCPCS: 0012A; 91301

== ENCOUNTER → 2020-09-19 08:22 | Outpatient (CLI) | payer MEDICARE, OTHER, SELFPAY ==
[2018-09-28 12:59] VITALS: BMI 41.7
[2020-09-19 09:12] LABS: Add Manual Diff / Slide Review NO; Basophils Absolute Auto 0 /uL (0-100); Basophils Percent Auto 0.7 % (0-2); Eosinophils Absolute Auto 100 /uL (0-450); Eosinophils Percent Auto 1.4 % (2-4); Hemoglobin 12.5 g/dL (12.0-16.0); Lymphocytes Absolute Auto 1800 /uL (1100-4500); Lymphocytes Percent Auto 28.5 % (25-40); Mean Corpuscular HGB Conc 33.7 % (30-36); Mean Corpuscular Hemoglobin 30.7 PG (26-34); Mean Corpuscular Volume 91.1 fL (80-100); Monocytes Absolute Auto 600 /uL (0-900); Monocytes Percent Auto 9.7 % (3-14); Neutrophils Absolute Auto 3700 /uL (1500-7000); Neutrophils Percent Auto 59.7 % (50-75); Platelet Count 243 X10^3/uL (150-400); Red Blood Cell Count 4.06 X10^6/uL (4.0-5.2); Red Cell Distribution Width 13.4 % (11.6-14.8); White Blood Cell Count 6.2 X10^3/uL (4.5-11.0)
[2020-09-19 09:53] LABS: BUN Creatinine Ratio 27.5 (6-22); Blood Urea Nitrogen 14 mg/dL (7-17); Calcium 9.8 mg/dL (8.4-10.2); Carbon Dioxide 27 mmol/L (22-32); Chloride 106 mmol/L (98-107); Estimated Glomerular Filt Rate > 60.0 mL/min (>60); Glucose 88 mg/dL (80-110); HEMOLYSIS < 15 (0-50); Potassium 4.8 mmol/L (3.4-5.1); Sodium 138 mmol/L (137-145)
== END ==
PROVIDERS: PCP Family Medicine; Referring Provider Orthopaedic Surgery; Visit Provider Orthopaedic Surgery
DX: Z01.818 Encounter for other preprocedural examination (principal); Z01.812 Encounter for preprocedural laboratory examination; R73.9 Hyperglycemia, unspecified; M25.562 Pain in left knee
CPT/HCPCS: 36415; 80048; 83036; 85025; 93005

== ENCOUNTER → 2020-10-14 09:11 | Outpatient (CLI) | payer MEDICARE, OTHER, SELFPAY ==
[2018-09-28 12:59] VITALS: BMI 41.7
[2020-10-14 11:57] LABS: COVID19 -Nasal RAPID Negative (Negative)
== END ==
PROVIDERS: PCP Family Medicine; Referring Provider Physician Assistant; Visit Provider Physician Assistant
DX: Z01.812 Encounter for preprocedural laboratory examination (principal); Z20.822 Contact with and (suspected) exposure to COVID-19
CPT/HCPCS: 87635; C9803

== ENCOUNTER 2020-10-17 10:43 | Observation (INO) | payer MEDICARE, OTHER, SELFPAY ==
[2018-09-28 12:59] VITALS: BMI 41.7
[2020-10-09 12:36] VITALS: BMI 44.9
[2020-10-16] VITALS (15 sets, daily range): BP systolic 103–131; BP diastolic 51–75; PULSE 63–86; RESP 10–17; TEMP 36.4–37.8; O2SAT 93–98; BMI 43.3
--- NOTE | 2020-10-16 06:30 | DI.RAD.S_ITS ---
PROCEDURE: XR KNEE LT 1TO2V INDICATIONS: post op total knee TECHNIQUE: 2 view(s) of the knee acquired. COMPARISON: [facility], , KNEE 1-2 VIEWS RIGHT, 04/09/2012, 11:24. FINDINGS: Bones: Patient is status post knee joint arthroplasty. Hardware components are in expected positions. Visualized bony structures are intact. Soft tissues: Overlying postoperative changes are noted. IMPRESSION: Expected immediate postoperative appearance of left TKA. Dictated by: Deion Tillman [facility] Interpreted: Juan Neri MD on 10/16/2020 at 15:07 Transcribed by: RIMA on 10/16/2020 at 15:08 Approved by: Juan Neri M.D. on 10/16/2020 at 15:22
[2020-10-16] MEDS: ACETAMINOPHEN 325 MG TABLET 975 MG PO (11:28)
[2020-10-16] MEDS: PREGABALIN 75 MG CAPSULE PO (11:29)
[2020-10-16] MEDS: CELECOXIB 200 MG CAPSULE PO (11:29)
[2020-10-16] MEDS: LACTATED RINGERS 1,000 ML 42 ML IV (11:40)
--- NOTE | 2020-10-16 12:17 | PM.PREOP ---
Pre-operative Note COVID-19 COVID-19 status: Negative Result date/Date tested (Pos, Neg/Pending): 10/14/20 Interval Note History & Physical reviewed/Exam performed by Physician: Yes Changes to H&P: No
[2020-10-16] MEDS: CEFAZOLIN 1 GM VIAL 2 GM IV (13:00)
[2020-10-16] MEDS: TRANEXAMIC ACID 1,000 MG VIAL 1000 MG INJ ×3 (13:01→14:03)
--- NOTE | 2020-10-16 13:14 | SUR.OPER ---
Supine on padded OR bed. Pillow under head, arms secured on padded armboards <90 degree abduction. Safety belt across torso. Non-operative leg secured with tape over blanket over lower leg. Operative leg secured in DeMayo positioner and in control of the Surgeon.
[2020-10-16] MEDS: BUPIVACAINE LIPOSOME 266 MG/20 ML VIAL INJ (13:21)
[2020-10-16] MEDS: MORPHINE 4 MG/ML INJ INJ (13:26)
[2020-10-16] MEDS: BUPIVACAINE 0.25% (PF) VIAL 60 ML INJ (13:26)
--- NOTE | 2020-10-16 14:48 | P.OP_ITS ---
Operative Date/Time/Diagnoses Date of procedure: 10/16/20 Time of procedure: 14:48 Pre-op diagnosis: Left knee osteoarthritis Post-op diagnosis: same Procedure & Clinicians Procedure: left total knee replacement Same procedure as scheduled: Yes Indications: The patient has had progressively worsening left knee pain with radiographic changes consistent with arthritis. Non-operative management has failed and the patient has requested total knee replacement. The risks, benefits and alternatives to surgery were discussed with the patient prior to proceeding. Risks discussed included, but were not limited to, failure to relieve pain, stiffness, infection, nerve damage, deep venous thrombosis, pulmonary embolism, stroke, coma, heart attack, permanent paralysis and , as well as the potential need for eventual revision of the prosthetic. Surgeon: Ike Jackson Meter And Service Line Inspector: Modesta Lyon Anesthesia Type: Spinal, Sedation and Local Operative Notes Findings: Severe tricompartmental osteoarthritis. Closure Type: primary Prosthetic devices, grafts, tissues, transplants, or devices: Implants used in this procedure were manufactured by the [employer] and included the BCS II Journey total knee replacement with a size 5 Oxinium femur, a size 3 left non porous tibial base plate with a 10 mm cross-linked polyethylene tibial insert and a 32 mm oval roshan II patellar component. Applied: implant(s) Estimated Blood Loss (mL): 25 Blood products transfused: none Tourniquet time (min): 50 Procedure in detail: The patient was seen in the pre-operative area, where the left knee was identified as the operative site and this was marked with my initials. The patient received pre-operative antibiotics, and was taken to the operating room and placed on the operative table in the supine position. After satisfactory anesthesia, a radio time buyer out was performed. The left leg was encircled with a tourniquet about the proximal thigh, and the leg was prepared from the toes to the tourniquet with ChloroPrep in the usual fashion and draped through sterile drapes. The leg was elevated and exsanguinated with Eschmark bandage and the tourniquet inflated to 250 mmHg pressure. The knee was approached through an approximately 18 cm incision centered over the patella and carried into the knee through a medial parapatellar arthrotomy. The anterior osteophytes and soft tissues were removed. The rotational landmarks of Sterling's line and the transepicondylar axis were marked on the femur with electrocautery, and intramedullary guide holes for the femur and tibia were created. The distal femoral cut was made in 6 degrees of valgus using the intramedullary guide at the primary cut setting. The proximal tibial cut was then made using the intramedullary guide, taking 9 mm of bone off the less involved side. The extension gap was checked and the rotation of the femoral component confirmed with the gap balancing blocks. The anterior, posterior and chamfer cuts were then made. The posterior osteophytes and soft tissues were then removed. The posterior capsule was injected with part of a mixture of 60 ml 0.25% Marcaine mixed with 20 ml Exparel and 4 mg of morphine for post-operative pain control. The remainder of this mixture was injected into the capsule and subcutaneous tissues during cement curing. The tibia was prepared with the rotation set by an extra medullary guide. Trial tibial and femoral components were then placed and the intercondylar notch cut through the femoral trial. Range of motion was 0-130 degrees, with good stability throughout the range. The patella was then cut to accommodate the patellar prosthetic. There was no need for a lateral release. The trials were then removed, and the femoral hole plugged with a bone plug. The bone was prepared with pulsatile lavage, and dried with a sponge. Cement was applied and the final prosthetics placed. Excess cement was removed during and after cement curing. After confirming there was no extruded cement posteriorly, the final tibial insert was placed. The knee was copiously irrigated and the tourniquet deflated. Hemostasis was obtained. The capsule was closed with inte rrupted # 2 polyester sutures. The subcutaneous layer was closed with 3-0 Vicryl, and the skin with a running 3-0 V-Lock suture and Dermabond. A Vicente dressing was applied and the patient was taken to recovery having tolerated the procedure well. Complications: none Post-operative Condition: stable Disposition: PACU Plan for aftercare: The patient will be maintained on a standard total knee replacement protocol with weight bearing as tolerated. The patient will receive aspirin and sequential compression devices for DVT prophylaxis. The patient will be discharged home when safe for the home environment.
--- NOTE | 2020-10-16 14:53 | SUR.PHASEI ---
Stable PACU stay. Pt able to transfer except receiving RN in report. Will do face to face report when report over.
--- NOTE | 2020-10-16 16:28 | SUR.PHASEI ---
Room available pt transported up to room 220. Bed locked, low scd's on, call tucker in hand aware to call for staff prior to getting oob.
[2020-10-16] MEDS: LACTATED RINGERS 1,000 ML 100 ML IV (17:24)
[2020-10-16] MEDS: OXYCODONE IR 5 MG TABLET PO (17:27)
[2020-10-16] MEDS: IBUPROFEN 400 MG TABLET PO (17:28)
[2020-10-16] MEDS: ACETAMINOPHEN 325 MG TABLET 650 MG PO (17:28)
[2020-10-16] MEDS: DOCUSATE 100 MG CAPSULE PO (20:44)
[2020-10-16] MEDS: ASPIRIN EC 81 MG TABLET PO (20:44)
[2020-10-16] MEDS: OXYCODONE IR 10 MG TABLET PO (20:44)
[2020-10-17] MEDS: OXYCODONE IR 10 MG TABLET PO (00:47)
[2020-10-17] MEDS: LACTATED RINGERS 1,000 ML 100 ML IV (02:41)
[2020-10-17 03:02] VITALS: BP 128/72; PULSE 78; RESP 16; TEMP 36.7; O2SAT 98
[2020-10-17] MEDS: IBUPROFEN 400 MG TABLET PO ×2 (05:27→08:31)
[2020-10-17 05:37] LABS: Hematocrit 33.6 % (36-46); Hemoglobin 11.5 g/dL (12.0-16.0)
--- NOTE | 2020-10-17 07:42 | PM.DS.1 ---
History of Present Illness History of Present Illness Date Patient Seen: 10/17/20 Time Patient Seen: 07:42 Chief complaint: OPB Narrative: The history and physical is contained in the chart previously completed note. Please refer to that note for this information. Discharge Providers Provider Date of admission: 10/16/20 Discharge Date: 10/17/20 Primary care physician: Alma Rosa Ramírez MD Consults: 10/16/20 17:04 Consult to Discharge Planning Routine Comment: Consult to Physical Therapy Evaluate & Treat Comment: Physician Instructions: postop TKA protocol Consult to Respiratory Therapy Evaluate & Treat Comment: Physician Instructions: Evaluate and treat Discharge provider: Ike Jackson MD Summary Hospital Course Discharge Diagnosis: 1. Left knee osteoarthritis 2. Post hemorrhagic anemia Hospital Course: The patient was admitted to the hospital and taken directly to the operating room on October 16, 2020. She underwent a left total knee replacement without complications. She had a mild post hemorrhagic anemia which should not require additional treatment. At the time of this discharge it is felt she will likely be able to go home. Status at Discharge Cognitive/behavioral status at discharge: oriented Functional status at discharge: uses cane/walker Overall status at discharge: patient is progressing back to baseline Time Spent with Patient Time spent: Less than 30 minutes Exam Vital Signs (past 8 hours): - 10/17/20 03:02 Temperature 98.0 F Pulse Rate 78 Respiratory Rate 16 Blood Pressure 128/72 Pulse Oximetry 98 Oxygen Delivery Method Room Air,CPAP Oxygen Flow Rate 0 Narrative Exam Narrative: Left knee wound is dressed with no drainage on the bandage. Calf is soft. Light touch and motion are intact in the left lower extremity. Objective Labs Result Diagrams: 10/17/20 05:12 Labs: Laboratory Results - last 24 hr 10/17/20 05:12 Hgb 11.5 L Hct 33.6 L PFSH Medical History Arthritis Depression Diverticulosis Morbid obesity with body mass index of 40.0-49.9 Obstructive sleep apnea of adult Osteoarthritis Snoring Surgical History H/O: hysterectomy (~1975) History of ankle surgery History of arthroplasty of right knee (~03/2012) History of arthroplasty of right shoulder (09/28/18) History of arthroscopy of both knees History of bilateral carpal tunnel release History of colonoscopy Hx of appendectomy (~1968) Hx of tonsillectomy Status post bilateral cataract extraction Status post epidural steroid injection Social History household members: spouse Smoking Status: Former smoker alcohol intake: current Discharge Assessment & Plan Assessment and Plan Assessment: Stable postoperative day 1 status post left total knee replacement with mild post hemorrhagic anemia. Plan of Treatment: Discharge today after physical therapy. Follow up in my office in 10-14 days. Discharge prescriptions for oxycodone as well as instructions for Tylenol and low-dose aspirin have been provided. Discharge Plan Discharge Plan Patient Disposition: Home Discharge orders & Medications Discharge Orders: Discharge (Order); Ordered 10/17/20 Ordered By: Ike Jackson Prescriptions: New acetaminophen 325 mg Tablet 650 mg PO TID 30 Days Qty: 180 RF: 0 aspirin 81 mg Tablet,Delayed Release (Dr/Ec) 81 mg PO BID 42 Days Qty: 84 RF: 0 oxycodone 5 mg Tablet 5 mg PO Q4H PRN (Reason: Pain, Moderate (4-6)) Qty: 40 RF: 0 Continued cholecalciferol (vitamin D3) [Vitamin D3] 50 mcg (2,000 unit) Tablet 100 mcg PO BID RF: 0 No Action (DME) Respironics DreamStation CPAP Qty: 1 RF: 0 Follow up/Referrals: Ike Jackson MD [Physician] - 2 Weeks Alma Rosa Ramírez MD [Primary Care Provider] - Diet/Activity/Treatments Diet: Diet as Tolerated and Regular Activity: You may bear weight as tolerated on your left leg. Cold/Heat Therapy: Apply ice for 15 minutes of every hour as needed to the left knee for pain control. Skin/Wound/Dressing Care Report to your healthcare provider any signs of infection, such as:: chills, fever, night sweats, increased pain, unusual drainage and unusual redness Dressing: You may remove the Otis wrap 3 days after surgery and shower normally with the deeper dressing in place. Disconnect the battery pack before showering. Visit Report/Discharge Packet Instructions: DI for Knee Replacement Stand Alone Forms: Surgery Discharge Discharge Data Primary Care Provider: Alma Rosa Ramírez Attending Provider: Manuel,Ike M Quality VTE Deep Vein Thrombosis/Pulmonary Embolism Present on Admission: No
[2020-10-17 08:00] VITALS: BP 125/70; PULSE 77; RESP 15; TEMP 36.6; O2SAT 98
[2020-10-17] MEDS: ACETAMINOPHEN 325 MG TABLET 650 MG PO (08:31)
[2020-10-17] MEDS: ASPIRIN EC 81 MG TABLET PO (08:31)
[2020-10-17] MEDS: DOCUSATE 100 MG CAPSULE PO (08:31)
--- NOTE | 2020-10-17 09:12 | CM.DANOTE ---
DCP/Assessment: Reviewed chart. Patient is a 70yr old female admitted to [facility] for elective left TKA completed on 10-16-[address] Jackson. PCP is Dr. Ramírez. Primary payor is 1)Medicare 2)[facility] Met with patient this AM explained CM/SW role. Patient alert and oriented resting in bed at time of visit. Patient reports that she hopes to d/c home today. Patient plans to do outpatient therapy and has all needed DME. Therapy evaluation currently pending. CORN DETASSELER requested therapy evaluation this AM so that patient can d/c home sooner rather than later (patient's request). P: Home today after seen by therapy. Patient requesting to d/c today if possible. MILDRED Bravo Discharge Planning/Care Management CM Discharge Assessment Start: 10/17/20 09:08 Freq: Status: Active Protocol: Document 10/17/20 09:08 KJS (Rec: 10/17/20 09:11 KJS [id number]) Discharge Planning Assessment Assigned Orthotics Assistant MILDRED Bravo Contact Information Evaristo Sanches (spouse) # [phone] Advance Directives? No History Provided By Patient,Medical Record Prior Living Arrangements House Household Members spouse Type of transporation used prior to Drives own vehicle admit Independent with ADL's Yes Is patient alert and oriented? Yes Caregiver for Another No Comment Uses CPAP at night. DME Already Rented / Owned Bath Bench,Wheelchair,FWW / Walker,Bedside Commode Comment Patient reports that she has all needed DME. Patient/Family Preference OP PT Therapy Comment Patient plans to do outpatient therapy in [place]. First visit scheduled for October 24. Barriers to Discharge No Discharge Plan Home Transportation Arrangement Spouse can provide transport. Referrals Initiated None needed Whiteboard Updated in Patient Room with Yes name and ext. # of Orthotics Assistant Review Status In Process Next Review Type Continued Stay Review Pre-Anesthesia Assessment Start: 10/09/20 12:36 Freq: Status: Complete Protocol: Document 10/09/20 12:36 CAB (Rec: 10/09/20 13:20 CAB [id number]) Pre-Anesthesia Assessment Preferred Name [facility] Patient Information Reviewed Via Phone Assessment Assessment Completed With Patient Diagnostic Results BMP/CMP,CBC,EKG Comment Labs/EKG @ 09/19/20 COVID screen @ [facility] 10/14/20 Primary Care Provider Alma Rosa Ramírez Seen Specialist in Last 12 Months Yes Specialist Seen Orthopedist Primary Language Libyan Preferred Language Libyan Automatic Door Mechanic Required No Height 152.4 cm Weight 104.326 kg Body Mass Index (BMI) 44.9 Hearing Ability Normal Visual Impairment No Limitations Visual Assist Magnifying Glass Dentition Type Teeth, Natural Present,Teeth, Missing Barriers to Learning None Other Aids Yes: CPAP Hx Anesthesia Reactions Yes: N/V s/p last wrist surgery Hx Family Anesthesia Reaction No Hx Malignant Hyperthermia No Hx Blood Transfusions No Hx Blood Transfusion Reaction No Anesthesia Review Requested No Caustic Room Operator No alcohol intake current alcohol intake frequency holidays/special occasions only Smoking Status Former smoker how long ago did patient quit smoking Quit 17-18 years ago Substance Use Type does not use Pain Present Pain Reported Musculoskeletal Symptoms Abnormal Gait,Difficulty Walking,Joint Pain,Limited Range of Motion History of Falling (Recent or History of Yes ) Patient is completely paralyzed or No completely immobile Mental Status Oriented to own ability Is patient on oxygen? No Does patient have NAYAK/SOB No Hx Sleep Apnea Yes CPAP/BIPAP use prescribed and used routinely Will Bring CPAP/BIPAP DOS Yes Currently Taking a Beta Rodolfo No Can You Climb a Flight of Stairs Without No SOB Hx Chest Pain No Hx SOB No Hx Syncope or Dizziness No Anti-Coagulant Therapy No Has a Pick Pulling Machine Operator No Cardiac Testing No Hx Pacemaker/ICD No Pacemaker Rep Required? No Cardiac Clearance Received Not Applicable Diet Type At Home Regular dysphagia No Bladder Pattern Incontinent, Stress,Urgency Urinary Catheter Present No Hx Urinary Self Catheterization No Diabetes No HgbA1C 5.0 Date 09/19/20 Patient No Lactating No Hx Drug Resistant Organism Yes: C-diff 2016 Presence of External or Internal Medical Yes: CPAP, right knee, Devices bilateral eye lens, right shoulder Have you had any close contact with No someone diagnosed with COVID-19? Marital Status Lives With spouse Prior Living Arrangements House Number of Floors (Floors) Two Floors Support System Spouse Patient Discharge Plan Description Return Home Feels Safe in Current Environment Yes Been Physically Hurt or Threatened By a No Person in Current Environment Do you have thoughts of harming yourself None or others? Are you currently considering suicide? No Do you have a plan to hurt yourself or No Plan others? Do You Have Any Spiritual Beliefs That No May Affect Your HC Choices? Do You Have Any Cultural Practices That No May Affect Your HC Choices? Who Can We Speak to About Patient's Care Family, friends Identifying Code for Release of Patient Declines to issue Information Health Care Proxy/Next of Kin Evaristo () Health Care Proxy Emergency Contact Name Evaristo () Emergency Contact Advance Directives? No: Declines further information Power of Electrician Second Yes Power of Electrician Second Name Evaristo () Power of Electrician Second PAC Instructions Bring CPAP/BIPAP,Do not shave/ clip surgical site,Durable medical equipment,Medications to take/avoid,Nasal antibiotic ,No ETOH/petroleum product on skin DOS,NPO,Pre-surgical wash ,Sensory aids,Sturdy shoes/ comfortable clothes,Do not bring valuables and remove jewelry
--- NOTE | 2020-10-17 09:44 | PT.IIE ---
Current Diagnoses Unilateral primary osteoarthritis, left knee (10/17/20) Surgery Performed Operation Date: 10/16/20 12:45 Actual Procedures p Total Knee Arthroplasty(Left) - Ike Jackson MD Medical History (Last Reviewed 10/10/20 @ 23:53 by Mariana Chowdhury [facility]) Arthritis Depression Diverticulosis Morbid obesity with body mass index of 40.0-49.9 Obstructive sleep apnea of adult Osteoarthritis Snoring Physical Therapy Inpatient Evaluation/Re-Eval M1 PT/OT-IP Prior Functional Status Start: 10/17/20 13:02 Freq: NEEDED Status: Active Protocol: Document 10/17/20 09:44 AB (Rec: 10/17/20 13:14 AB [id number]) Medical Review Prior Functional Status Medical History Reviewed Yes Communication able to make needs known Mobility and Gait pt stated that she is independent with all mobilities and ambulation without AD Social History Household Members spouse Living Arrangements House Number of Floors (Floors) Two Floors Number of Stairs To Enter/Railing? pt stays on main level of the house has 4 steps B rails to enter Home Environment Standard Height Toilet,Walk in Shower,Built-In Shower Seat Home Equipment Front Wheel Walker,Straight Cane,Raised Toilet Seat w/ Armrests Additional Social History Comment pt has an adjustable bed M2 PT-IP Current Condition Start: 10/17/20 13:02 Freq: NEEDED Status: Active Protocol: Document 10/17/20 09:44 AB (Rec: 10/17/20 13:14 AB [email or web address]) Physical Therapy Current Condition Current Condition Evaluation Date 10/17/20 Treatment Diagnosis s/p L TKA ; difficulty in walking Onset Date 10/16/20 Weight Bearing Status Weight Bearing Status Weight Bear as Tolerated Allowed Weight Bearing Amount (enter % LLE WBAT or #) (%) M3 PT-IP Subjective Start: 10/17/20 13:02 Freq: NEEDED Status: Active Protocol: Document 10/17/20 09:44 AB (Rec: 10/17/20 13:14 AB [id number]) Subjective Physical Therapy Visit Type Type Initial Evaluation Visit Start Time 09:44 Visit Stop Time 10:40 Total Visit Minutes 56 Number of CIVIL LITIGATION ATTORNEY Visits 0 Physical Therapy Visit Comments Patient Comments pt is agreeable to do PT Therapy Pain Assessment Pain When Pain Assessed At Rest Pain Present Pain Present Pain Reported Location Left Knee Intensity 5 Scale Used Numeric (0 - 10) Pain Management Techniques Apply Cold,Modification of Treatment,Re-positioning, Timing of Activity with Medications M4 PT-IP Mobility and Gait Start: 10/17/20 13:02 Freq: NEEDED Status: Active Protocol: Document 10/17/20 09:44 AB (Rec: 10/17/20 13:14 AB [id number]) PT-Bed Mobility Assessment Supine to Sit Supine to Sit Standby Assistance PT-Transfer Assessment Sit to and From Stand Sit to and from Stand Standby Assistance Equipment Transfer Assistive Device Gait Belt,Front Wheeled Walker Orthotic/Prosthetic Devices or Brace: No Transfers Transfer Destination Chair Transfer Technique Stand Step Pivot Transfer Ability Level of Assist Standby Assistance,Contact Guard Assistance,1 Person Assistance,Use of Upper Extremities Comments Mobility Comments pt completed supine to sit SBA . able to sit on EOB SBA. completed sit to stand CGA and completed step transfer using FWW to chair CGA. pt ambulated in room using FWW SBA to CGA ~ 25 ft. pt can be impulsive and cued for safety and quads activation. agreed to do stairs and ambulate in the hallway SBA to CGA ~ 75 ft . educated on how to do stairs and completed using B rails SBA to CGA. spouse then stated that pt can only hold on to one rails at a time but spouse is saying she can hold on to B. completed stairs again with pt holding on to R rail with B hands and completed CGA. assisted pt back to her room. ambulated to the chair. educated spouse on how to use safety belt and how to assist pt. positioned pt on chair. call light and table placed within reach. Gait Assessment Gait Gait Assistance Required: Standby Assistance,Contact Guard Assist Distance (Feet) 75 Able to Maintain Weight Bearing Status Yes During Gait Assistive Devices Assistive Device Gait Belt,Front Wheeled Walker Orthotic/Prosthetic Devices or Brace: No Gait Deviations General Gait Pattern Decreased Stride Length, Festinating Factors Limiting Gait Function Factors Limiting Gait Function Decreased Activity Tolerance, Decreased Strength,Difficulty Following Directions,Limited Range of Motion,Pain,Poor Safety Awareness Comments Gait Comments pls refer to mobility section for details Stair Climbing Assessment Evaluation Level of Assist On Stairs Contact Guard Assistance Devices Stair Climbing Assistive Devices Left Railing,Right Railing Technique/Endurance Stair Climbing Direction Ascend and Descend Stair Climbing Technique Step to Step Number of Steps Climbed 3 Query Text: Stair Climbing Set # Repetitions (reps) 2 Comments Stair Climbing Comments pls refer to mobility section for details PT-Balance Assessment Sitting Balance and Reactions Static Sitting Balance Ability Good Dynamic Sitting Balance Ability Good Standing Balance and Reactions Static Standing Balance Ability Fair Dynamic Standing Balance Ability Fair Device Used FWW M5 PT-IP Objective Assessments Start: 10/17/20 13:02 Freq: NEEDED Status: Active Protocol: Document 10/17/20 09:44 AB (Rec: 10/17/20 13:14 AB [id number]) Orientation Orientation/Cognition Level of Alertness Alert Orientation Name,Place,Situation Gross Range of Motion Lower Extremity ROM Assessment Within Functional Limits Strength Lower Extremity Strength Assessment Left Impaired Hip 4-/5 Knee 3+/5 Muscle Tone Muscle Tone WNL Yes M6 PT-IP Treatment Start: 10/17/20 13:02 Freq: NEEDED Status: Active Protocol: Document 10/17/20 09:44 AB (Rec: 10/17/20 13:14 AB [id number]) Physical Therapy Treatment Education Education Provided Precautions,Weight Bearing Status,Post-Op Packet,Safety M7 PT-IP Assessment and Plan Start: 10/17/20 13:02 Freq: NEEDED Status: Active Protocol: Document 10/17/20 09:44 AB (Rec: 10/17/20 13:14 AB [id number]) PT Summary Assessment and Plan Potential Rehabilitation Potential Good Status of Condition at Evaluation Stable Summary Impairments Pain,ROM,Strength,Balance, Coordination,Sensation,Tone, Cognition,Bed Mobility, Transfers,Gait,Activity Tolerance Assessment Summary pt requiring SBA to CGA with mobility using FWW and will have her spouse assist her at home. educated spouse on how to use belt and how to assist pt. pt stated that she has outpt PT scheduled. pt may go home when medically stable. Goals Bed Mobility Goal Independent Transfer Goal Independent,Front Wheeled Walker Gait Goal Independent,Front Wheel Walker Gait Distance 150 Other Goals up/down 4 steps 1 rail sBA Days to Meet Goals 5 Frequency of Treatment Frequency Of Treatment Twice a Day Treatment Plan Physical Therapy Treatment Plan Bed Mobility Training,Transfer Training,Gait Training, Therapeutic Exercise,Balance Retraining,Post Op Education, Discharge Planning,Hot or Cold Pack,Neuromuscular Re-ed, Coordination Retraining,Manual Therapy Precautions Other Precautions LLE WBAT Recommendations To Nursing Amount of Assist Needed 1 Person Assist Discharge Recommendations PT Discharge Recommendations Home with Assistance, Outpatient PT Transportation Needs at Discharge Private Vehicle
[2020-10-17] MEDS: OXYCODONE IR 5 MG TABLET PO (11:04)
--- NOTE | 2020-10-17 11:35 | CM.DANOTE ---
Patient discharged home. Left via wheelchair, accompanied by spouse and RN. All discharge information, education, and instructions given to patient and spouse. Both verbalized understanding. Denied any further questions.
== END 2020-10-17 11:35 | disposition home or self-care (01) ==
LOC: OR 10:57 → AC 10:57
PROVIDERS: Admitting Provider Orthopaedic Surgery; PCP Family Medicine; Referring Provider Orthopaedic Surgery; Visit Provider Orthopaedic Surgery
PROC: 0SRD0JZ Replacement of Left Knee Joint with Synthetic Substitute, Open Approach (ICD-10-PCS; CPT 27447; principal; 2020-10-16 12:45)
DX: M17.12 Unilateral primary osteoarthritis, left knee (principal); G47.33 Obstructive sleep apnea (adult) (pediatric); K21.9 Gastro-esophageal reflux disease without esophagitis; E66.01 Morbid (severe) obesity due to excess calories; Z68.41 Body mass index [BMI] 40.0-44.9, adult
CPT/HCPCS: 27447; 36415; 73560; 85014; 85018; 97116; 97161; 97530; C1776; G0378; C9290; J0690; J2270; J2274; J2704

== ENCOUNTER → 2021-04-12 11:22 | Outpatient (CLI) | payer MEDICARE, OTHER, SELFPAY ==
[2020-10-16 16:30] VITALS: BMI 43.3
--- NOTE | 2021-04-12 11:24 | DI.MG.S_ITS ---
BILATERAL DIGITAL SCREENING MAMMOGRAM 3D/2D WITH CAD: 04/12/2021 CLINICAL: Routine screening. Family history of breast cancer. Comparison is made to exams dated: 04/10/2019 mammogram, 04/11/2020 mammogram, and 03/25/2018 mammogram - [facility]. The tissue of both breasts is heterogeneously dense. This may lower the sensitivity of mammography. Current study was also evaluated with a Computer Aided Detection (CAD) system. No significant masses, calcifications, or other findings are seen in either breast. There has been no significant interval change. IMPRESSION: NEGATIVE There is no mammographic evidence of malignancy. A 1 year screening mammogram is recommended. This exam was interpreted at Station ID: [id number]. NOTE: For mammograms, a report in lay terms will be sent to the patient. Approximately 15% of breast malignancies will not be visualized mammographically. In the management of a palpable breast mass, a negative mammogram must not discourage biopsy of a clinically suspicious lesion. Electronically Signed By: Rodrigo Tatum M.D., jr/gilbert:04/12/2021 12:17:49 letter sent: Normal Exam ACR BI-RADS Category 1: Negative [id number]
== END ==
PROVIDERS: PCP Family Medicine; Referring Provider Family Medicine; Visit Provider Family Medicine
DX: Z12.31 Encounter for screening mammogram for malignant neoplasm of breast (principal); Z80.3 Family history of malignant neoplasm of breast
CPT/HCPCS: 77063; 77067

== ENCOUNTER → 2021-11-19 08:11 | Outpatient (CLI) | payer MEDICARE, OTHER, SELFPAY ==
[2021-05-28 16:12] VITALS: BMI 43.3
--- NOTE | 2021-11-19 | DI.RAD.S_ITS ---
PROCEDURE: XR CHEST 2V INDICATIONS: SHORTNESS OF BREATH TECHNIQUE: 2 views of the chest were acquired. COMPARISON: [facility], CR, XR CHEST 2V, 09/09/2019, 8:00. FINDINGS: Surgical changes and devices: Right shoulder arthroplasty hardware is seen. Lungs and pleura: Low lung volumes are noted. This causes a crowded appearance to the lung markings and limits evaluation. Interstitial prominence can be seen, which is worst centrally. Mediastinum: Mediastinal contours are normal. Heart size is mildly to moderately enlarged. Bones and chest wall: Age-appropriate bony degenerative changes are seen. No suspicious bony abnormalities. Soft tissues appear unremarkable. IMPRESSION: Cardiomegaly and interstitial prominence can be seen. Please correlate with patient presentation, physical examination findings, and laboratory values for congestive heart failure. However, low lung volumes are seen, which limit evaluation. If clinically appropriate, a short-term follow-up chest series (with PA and lateral views) performed in deep inspiration is suggested for further evaluation. Dictated by: Willie Stoddard M.D. on 11/19/2021 at 8:59 Approved by: Willie Stoddard M.D. on 11/19/2021 at 9:01
== END ==
PROVIDERS: PCP Family Medicine; Referring Provider Family Medicine; Visit Provider Family Medicine
DX: R06.02 Shortness of breath (principal); I51.7 Cardiomegaly
CPT/HCPCS: 71046

== ENCOUNTER → 2021-11-21 08:36 | Outpatient (CLI) | payer MEDICARE, OTHER, SELFPAY ==
[2021-05-28 16:12] VITALS: BMI 43.3
--- NOTE | 2021-11-21 | DI.RAD.S_ITS ---
PROCEDURE: FL UPPER GI SERIES INDICATIONS: DYSPHAGIA COMPARISON: None. FINDINGS: KUB: Preprocedural straightening roll operator film demonstrates a normal bowel gas pattern. No suspicious abdominal calcifications. Visualized solid organ contours appear normal. Bony structures appear unremarkable. Pelvic phleboliths are incidentally noted. Age-appropriate bony degenerative changes are seen. Esophagus: Esophageal mucosa is normal on air-contrast views. On single-contrast views, there is normal esophageal peristalsis. No strictures, extrinsic mass effects, or diverticula. There is a small hiatal hernia seen, with moderate gastroesophageal reflux, which is documented to the level of the thoracic inlet. There is normal transit of a calibrated barium tablet through the esophagus. Stomach: The stomach is normally distensible, with normal rugal fold thickness. No mucosal masses or ulcers. Pylorus and duodenal bulb appear normal in morphology. Duodenal folds are normal in thickness as well. IMPRESSION: Small hiatal hernia seen, with moderate gastroesophageal reflux. Dictated by: Willie Stoddard M.D. on 11/21/2021 at 10:02 Approved by: Willie Stoddard M.D. on 11/21/2021 at 10:03
== END ==
PROVIDERS: PCP Family Medicine; Referring Provider Family Medicine; Visit Provider Family Medicine
DX: K44.9 Diaphragmatic hernia without obstruction or gangrene (principal); R13.10 Dysphagia, unspecified; Z13.820 Encounter for screening for osteoporosis; M85.851 Other specified disorders of bone density and structure, right thigh; K21.9 Gastro-esophageal reflux disease without esophagitis; Z78.0 Asymptomatic menopausal state; Z90.710 Acquired absence of both cervix and uterus
CPT/HCPCS: 74240; 77080

== ENCOUNTER → 2021-12-31 09:23 | Outpatient (CLI) | payer MEDICARE, OTHER, SELFPAY ==
[2021-05-28 16:12] VITALS: BMI 43.3
--- NOTE | 2021-12-31 | DI.ECHO.S_ITS ---
[facility] +---------+ : : [address] : : : : [address] : : : : Phone: [phone]+ Echocardiogram Report + + :Name: ZOË QUINTERO Study Date: 12/31/2021 Height: 59 in : :[facility] ReadingLocation: Weight: 225 lb : : Gender: Female BSA: 1.9 m2 : :: 1950 Age: 71 yrs BP: 128/70 mmHg: :Reason For Study: SHORTNESS OF BREATH : :Ordering Physician: DENNIS, : :VENU Performed By: Marry Robin : :Referring: VENU COLLINS : + + Interpretation Summary Normal left ventricle size with ejection fraction 60-65%. Severely dilated left atrium. Mild aortic valve sclerosiis. Mild mitral annular calcification. Mild tricuspid regurgitation. Comparison is made with the echocardiogram of 09/09/2019, left atrium size has increased Procedure: A two-dimensional transthoracic echocardiogram with color flow and Doppler was performed. The study quality was technically adequate. Comparison is made with the echocardiogram of 09/09/2019. The patient was in sinus rhythm with heart rates between 52-72 bpm during the exam. Left Ventricle: The left ventricle is normal in size and wall thickness. The ejection fraction is estimated to be 60-65%. There are no focal wall motion abnormalities. Right Ventricle: The right ventricle is normal in size and function. Atria: The left atrium is severely dilated. Right atrial size is normal. There is no Doppler evidence for an interatrial shunt. Mitral Valve: The mitral valve is normal in structure and function. There is mild mitral annular calcification. There is trace mitral regurgitation. Aortic Valve: The aortic valve is trileaflet. The aortic valve opens well. There is mild aortic valve sclerosis. There is no aortic valve stenosis. No aortic regurgitation is present. Tricuspid Valve: The tricuspid valve is normal in structure and function. There is mild tricuspid regurgitation. Pulmonic Valve: The pulmonic valve leaflets are thin and pliable; valve motion is normal. There is trace pulmonic regurgitation. Great Vessels: The aortic root is normal size. The dimensions of the ascending aorta are normal. The IVC is of normal diameter and collapses greater than 50% with a sniff. This suggests a low right atrial pressure of 3 mm Hg. Pericardium/ Pleura There is no pericardial effusion. There is no pleural effusion. MMode/2D Measurements & Calculations LVIDd: 4.5 cm LVOT diam: 2.0 cm LVIDs: 3.3 cm Ao root diam: 3.2 cm FS: 26.6 % asc Aorta Diam: 2.7 cm EPSS: 1.1 cm Ao Arch Diam (Prox Trans): 2.4 cm IVSd: 1.1 cm LVPWd: 0.76 cm LV thorpe. diameter/BSA (cm/m^2): 2.3 LV sys. diameter/BSA (cm/m^2): 1.7 LA A2 area: 28.0 cm2 RA long axis: 5.2 cm LA A4 area: 22.9 cm2 RA area: 16.2 cm2 LA length (vol): 5.9 cm RA vol: 42.5 ml LA vol: 92.7 ml RA : 21.9 ml/m2 LA vol index: 47.8 ml/m2 IVC diam: 1.8 cm RVD1 (basal): 3.7 cm RVD2 (mid): 3.2 cm TAPSE: 2.5 cm Doppler Measurements & Calculations Ao V2 max: 226.6 cm/sec LVOT Max Rambo: 116.3 cm/sec Ao V2 mean: 141.8 cm/sec LV V1 max P.4 mmHg Ao max P.5 mmHg LV V1 VTI: 27.2 cm Ao mean P.4 mmHg YON(I,D): 1.7 cm2 Ao V2 VTI: 52.3 cm YON(V,D): 1.7 cm2 sev ratio: 0.52 YON indexed to BSA (cm^2/m^2): 0.87 MV E max rambo: 110.2 cm/sec PA V2 max: 97.9 cm/sec MV A max rambo: 144.6 cm/sec PA V2 mean: 73.1 cm/sec MV E/A: 0.76 PA mean P.3 mmHg Med Peak E' Rambo: 8.0 cm/sec PA pr(Accel): 25.9 mmHg E/E' med: 13.8 Lat Peak E' Rambo: 9.8 cm/sec E/E' lat: 11.3 E/e' average: 12.5 MV dec time: 0.27 sec SV(LVOT): 88.4 ml Electronically signed by: Frankie Candelaria on Reading Physician:12/31/2021 08:48 PM
== END ==
PROVIDERS: PCP Family Medicine; Referring Provider Family Medicine; Visit Provider Family Medicine
DX: R06.02 Shortness of breath (principal); R05.1 Acute cough; I51.7 Cardiomegaly; I35.8 Other nonrheumatic aortic valve disorders; I07.1 Rheumatic tricuspid insufficiency
CPT/HCPCS: 93306

== ENCOUNTER → 2022-03-22 09:05 | Outpatient (CLI) | payer MEDICARE, OTHER, SELFPAY ==
[2021-05-28 16:12] VITALS: BMI 43.3
[2022-03-22 11:19] LABS: COVID19 -Nasal RAPID Negative (Negative)
== END ==
PROVIDERS: PCP Family Medicine; Visit Provider Surgery
DX: Z20.822 Contact with and (suspected) exposure to COVID-19 (principal); Z01.812 Encounter for preprocedural laboratory examination
CPT/HCPCS: 87635; C9803

== ENCOUNTER 2022-03-25 06:55 | Day surgery (SDC) | payer MEDICARE, OTHER, SELFPAY ==
[2021-05-28 16:12] VITALS: BMI 43.3
--- NOTE | 2022-03-25 | PATH_ITS ---
[facility] Accession Number: [id number] . 01 Material submitted: . gastrointestinal site - ANTRUM BIOPSY . 01 Diagnosis: Antrum, Biopsy: Gastric antral mucosa with mild chronic inflammation. Negative for Helicobacter organisms by immunohistochemistry. Negative for intestinal metaplasia. Negative for dysplasia or malignancy. MRV 03/28/2022 1500 Local . 01 Electronically signed: . Sunil Rossi MD, PhD, Pathologist NPI- [id number] . 01 Gross description: . ANTRUM BIOPSY: Received in formalin are 3 fragment(s) of wagner, soft tissue measuring 0.1 x 0.1 x 0.1 cm to 0.3 x 0.2 x 0.2 cm submitted entirely in 1 cassette(s) /BALJINDER 03/26/2022 0059 Local . 01 Microscopic: . An immunohistochemical stain was performed to evaluate for Helicobacter organisms and is negative. The control stain showed appropriate reactivity. . * This test was developed and its performance characteristics determined by [facility]. It has not been cleared or approved by the U.S. Food and Drug Administration. The FDA has determined that such clearance or approval is not necessary. This test is used for clinical purposes. It should not be regarded as investigational or for research. . 01 Pathologist provided ICD-10: K29.70 . 01 CPT . 098791, K00632 Specimen Comment: A courtesy copy of this report has been sent to [phone] Performed at: 01 [facility] [address] [place] [address], [place], [place] [id number] MD Jacob Kelly MD Phone: [phone]
[2022-03-25 07:27] VITALS: BP 115/71; PULSE 75; RESP 20; TEMP 36.2; O2SAT 99; BMI 44.5
[2022-03-25] MEDS: SODIUM CHLORIDE 0.9% 1,000 ML 84 ML IV (07:42)
--- NOTE | 2022-03-25 07:48 | PM.HP.1 ---
History of Present Illness History of Present Illness Date Patient Seen: 03/25/22 Time Patient Seen: 07:48 Chief complaint: SDC Narrative: I reviewed my recent office note. There has been a 30% improvement with once daily omeprazole. Patient History Medical History Arthritis Depression Diverticulosis Morbid obesity with body mass index of 40.0-49.9 Obstructive sleep apnea of adult Osteoarthritis Snoring Surgical History H/O: hysterectomy (~1975) History of ankle surgery History of arthroplasty of right knee (~03/2012) History of arthroplasty of right shoulder (09/28/18) History of arthroscopy of both knees History of bilateral carpal tunnel release History of colonoscopy Hx of appendectomy (~1968) Hx of tonsillectomy Status post bilateral cataract extraction Status post epidural steroid injection Family & Social History Social History: household members spouse Tobacco & Substance use: Smoking Status Former smoker alcohol intake current alcohol intake frequency holiday/special occasion Substance Use Type does not use Meds Home Medications and Allergies Home Medications Medication Instructions Recorded Confirmed Type Respironics DreamStation CPAP #1 ea 07/23/18 10/16/20 History cholecalciferol (vitamin D3) 50 100 mcg PO BID 10/09/20 03/25/22 History mcg (2,000 unit) tablet (Vitamin D3) omeprazole magnesium 20 mg 20 mg PO DAILY 03/25/22 03/25/22 History tablet,delayed release (Prilosec OTC) Allergies Allergy/AdvReac Type Severity Reaction Status Date / Time No Known Drug Allergies Allergy Verified 03/25/22 07:17 Review of Systems Review of Systems ROS: Yes All systems reviewed with the patient and are negative except as otherwise documented Exam Vital Signs (past 8 hours): - 03/25/22 07:27 Temperature 97.1 F L Pulse Rate 75 Respiratory Rate 20 Blood Pressure 115/71 Pulse Oximetry 99 Oxygen Delivery Method Room Air Oxygen Delivery Method Room Air Const General: cooperative HENMT Head: normal to inspection Eyes General: appearance normal, both eyes and all related structures Neck Neck: normal visual inspection Chest Chest: normal inspection of the chest Resp Effort & Inspection: normal respiratory effort Cardio Rate: regular rate GI Inspection: normal to inspection Skin General: no rashes or lesions noted Neuro General: patient alert and patient awake Extrem General: normal to inspection and no pedal edema Psych Appearance: grossly normal Assessment & Plan Assessment & Plan narrative: 71-year-old female with chronic dysphagia to solids and only a 30% improvement with once daily PPI. She has a family history of colon cancer. EGD and colonoscopy are pursued today. Time Spent With Patient Critical Care time: I spent a total of [] minutes of critical care time on this patient's care today; this time is exclusive of procedural time.
--- NOTE | 2022-03-25 07:50 | PM.PREOP ---
Pre-operative Note COVID-19 COVID-19 status: Negative Result date/Date tested (Pos, Neg/Pending): 03/22/22 Criteria for continued procedure: Possibility delay results in more complex future surgery or treatment Interval Note History & Physical reviewed/Exam performed by Physician: Yes Changes to H&P: No ASA Class (for procedural sedation): III
[2022-03-25 08:42] VITALS: BP 102/57; PULSE 69; RESP 20; TEMP 36.6; O2SAT 97
--- NOTE | 2022-03-25 08:42 | PM.OP.EC ---
Operative Date/Time/Diagnoses Date of procedure: 03/25/22 Time of procedure: 08:42 Pre-op diagnosis: Dysphagia reflux family history of colon cancer Post-op diagnosis: same Procedure & Clinicians Study performed: EGD with biopsies and Savary dilatation plus colonoscopy Same procedure as scheduled: Yes Indications: Dysphagia, reflux, family history of colon cancer. Surgeon: Juan Mota Procedure Notes SCOAP/Timeout: Done Procedure in detail: After the risks and benefits were explained, written and verbal informed consent was obtained. The patient was brought into the procedure room and placed into the left lateral decubitus position. Please see nurse information technology technician notes for sedation details. The scope was introduced into the mouth through the bite block and advanced under direct visualization to the 2nd portion of the duodenum. The scope was slowly withdrawn carefully examining the mucosa for any defects or lesions. Retroflexed views were accomplished in the stomach. The stomach was decompressed, the scope was then removed from the patient who tolerated the procedure well. The patient was then turned around, a digital rectal examination accomplished. The scope was introduced into the rectum and advanced to the cecum as identified by the appendiceal orifice and ileocecal valve. The scope was slowly withdrawn to carefully examine the mucosa for any defects or lesions. Multiple direct views were made through the dentate line for exclusion of pathology. The colon was decompressed. The scope was removed from the patient who tolerated the procedure well. Adult colonoscope Bowel prep adequate Scope withdrawal time: 9 minutes Sedation minutes: 40 Complications: none Impression: 1. Duodenum: This was normal from the bulb through to the 2nd portion. 2. Stomach: Patient had some scattered subtle erosive features in the antrum. Random biopsies were taken for exclusion of Helicobacter or other pathology. No ulcers. No mass lesions. No outlet obstruction. Retroflexed views of the LES were unremarkable with the exception of a subtle sliding hiatal hernia. 3. Esophagus: The squamocolumnar junction correlated with the top of the gastric folds. GE junction was at about 33 cm from the incisors. There was evidence of LA grade a erosive esophagitis. There was evidence of a nonobstructing partial Schatzki's ring. The esophagus was mildly tortuous. The endoscopy lab did not have a 15 through 18 mm balloon. I therefore performed Savary dilatation starting at 45 [place]ian, progressing through 48 [place] and finally 51 [place]ian. Minimal dilatation with the 51 [place]. Patient tolerated the procedure quite well. 4. Colon: Scattered diverticulosis was encountered in the left colon. No significant polyps mass lesions or inflammatory features identified throughout. Grade 1-2 internal hemorrhoids. Endoscopic diagnosis 1. Small sliding hiatal hernia 2. Partial nonobstructing Schatzki's ring status post Savary dilatation to 51 [place] 3. LA grade a erosive esophagitis 4. Erosive gastropathy 5. Grade 1-2 hemorrhoids 6. Diverticulosis Post-procedure Plan for aftercare: 1. Await histopathology. 2. Increase omeprazole to twice daily. 3. Repeat colonoscopy 5 years 4. Follow up GI clinic 6-8 weeks. Disposition: PACU
[2022-03-25 08:47] VITALS: BP 103/58; PULSE 90; RESP 16; O2SAT 99
--- NOTE | 2022-03-25 08:48 | SUR.PHASEI ---
Received to PACU after MAC. Report received from EVY Lin and SONIA Couch.
[2022-03-25 08:52] VITALS: BP 106/55; PULSE 58; RESP 10; O2SAT 97
[2022-03-25 08:57] VITALS: BP 104/52; PULSE 61; RESP 18; O2SAT 98
[2022-03-25 09:05] VITALS: BP 113/50; PULSE 62; RESP 18; TEMP 36.3; O2SAT 98
== END 2022-03-25 09:19 | disposition home or self-care (01) ==
PROVIDERS: PCP Family Medicine; Referring Provider Internal Medicine Gastroenterology; Visit Provider Internal Medicine Gastroenterology
PROC: 0DJ08ZZ Inspection of Upper Intestinal Tract, Via Natural or Artificial Opening Endoscopic (ICD-10-PCS; CPT 43235; principal; 2022-03-25 08:00)
PROC: 0DJD8ZZ Inspection of Lower Intestinal Tract, Via Natural or Artificial Opening Endoscopic (ICD-10-PCS; CPT 45378; 2022-03-25 08:00)
DX: Z12.11 Encounter for screening for malignant neoplasm of colon (principal); Z86.010 Personal history of colon polyps; Z80.0 Family history of malignant neoplasm of digestive organs; R13.10 Dysphagia, unspecified; K22.2 Esophageal obstruction; K44.9 Diaphragmatic hernia without obstruction or gangrene; K21.00 Gastro-esophageal reflux disease with esophagitis, without bleeding; K64.1 Second degree hemorrhoids; K57.30 Diverticulosis of large intestine without perforation or abscess without bleeding; K29.50 Unspecified chronic gastritis without bleeding
CPT/HCPCS: 43248; 43239; G0105; J2704; J3010

== ENCOUNTER → 2022-04-16 09:29 | Outpatient (CLI) | payer MEDICARE, OTHER, SELFPAY ==
[2021-05-28 16:12] VITALS: BMI 43.3
--- NOTE | 2022-04-16 | DI.MG.S_ITS ---
BILATERAL DIGITAL SCREENING MAMMOGRAM 3D/2D WITH CAD: 04/16/2022 CLINICAL: Routine screening. Family history of breast cancer. Comparison is made to exams dated: 04/12/2021 mammogram, 04/11/2020 mammogram, and 04/10/2019 mammogram - [facility]. Both breasts are heterogeneously dense, which may obscure small masses (category c / 51-75% glandular tissue). Current study was also evaluated with a Computer Aided Detection (CAD) system. No significant masses, calcifications, or other findings are seen in either breast. There has been no significant interval change. IMPRESSION: NEGATIVE There is no mammographic evidence of malignancy. A 1 year screening mammogram is recommended. Based on the Tyrer Cuzick model (a risk assessment model) the patient's lifetime risk is 11.3% and her 10 year risk is 7.8%. According to the ACR, ACS, and NCCN guidelines, an annual breast MRI exam along with mammogram is recommended if the patient's lifetime risk is 20% or greater. This exam was interpreted at Station ID: [id number]. NOTE: For mammograms, a report in lay terms will be sent to the patient. Approximately 15% of breast malignancies will not be visualized mammographically. In the management of a palpable breast mass, a negative mammogram must not discourage biopsy of a clinically suspicious lesion. Electronically Signed By: Mehul mejia/gilbert:04/16/2022 12:30:50 letter sent: Normal Exam ACR BI-RADS Category 1: Negative [id number]
== END ==
PROVIDERS: PCP Family Medicine; Referring Provider Family Medicine; Visit Provider Family Medicine
DX: Z12.31 Encounter for screening mammogram for malignant neoplasm of breast (principal); Z80.3 Family history of malignant neoplasm of breast
CPT/HCPCS: 77063; 77067

== ENCOUNTER → 2022-04-18 08:24 | Outpatient (CLI) | payer MEDICARE, OTHER, SELFPAY ==
[2021-05-28 16:12] VITALS: BMI 43.3
--- NOTE | 2022-04-18 | DI.RAD.S_ITS ---
PROCEDURE: XR SHOULDER LT MIN 2V INDICATIONS: Pain in left shoulder TECHNIQUE: 3 views of the shoulder were acquired. COMPARISON: [facility], CR, XR SHOULDER RT MIN 2V, 09/28/2018, 10:17. FINDINGS: Bones: No acute fractures or dislocations. No suspicious bony lesions. Visualized ribs appear intact. Moderate degenerative changes of the acromioclavicular and glenohumeral joint. Soft tissues: No suspicious soft tissue calcifications. IMPRESSION: Left shoulder without acute or subacute osseous abnormalities. Degenerative changes of the left acromioclavicular and glenohumeral joints. If there are persistent symptoms or clinical suspicion for pathology, then repeat radiographs or advanced imaging (CT or MRI) may be considered for further evaluation. Dictated by: Mehul Casillas M.D. on 04/18/2022 at 11:03 Approved by: Mehul Casillas M.D. on 04/18/2022 at 11:04
== END ==
PROVIDERS: PCP Family Medicine; Referring Provider Family Medicine; Visit Provider Family Medicine
DX: M25.512 Pain in left shoulder (principal)
CPT/HCPCS: 73030

== ENCOUNTER → 2022-09-25 14:13 | Outpatient (CLI) | payer MEDICARE, OTHER, SELFPAY ==
[2021-05-28 16:12] VITALS: BMI 43.3
--- NOTE | 2022-09-25 | DI.NM.S_ITS ---
PROCEDURE: NM BELTRAN PERF SPECT R&S PHARM Rest and pharmacological stress myocardial perfusion SPECT with gated imaging and ejection fraction RADIOPHARMACEUTICAL: 25.4 mCi Tc-99m tetrafosmin IV at rest and 26.4 mCi Tc-99m tetrafosmin IV at peak effect of pharmacological stress. [id number] was performed. INDICATIONS: Other forms of dyspnea TECHNIQUE: Radiopharmaceutical was injected at peak stress test, and also at rest. SPECT images were obtained. SPECT myocardial perfusion images were displayed in short axis, horizontal long axis, and vertical long axis views. Gated images were reviewed using [employer] software. COMPARISON: None. CARDIAC STRESS: A pharmacologic stress test was performed under the supervision of an attending staff, using an infusion of regadenoson 0.4 mg IV. Hemodynamic data: There is normal blood pressure and heart rate response to pharmacologic stress. Symptoms: The patient denied anginal chest pain. EKG: No diagnostic changes of ischemia; no ectopy. FINDINGS: Raw data: There is good myocardial uptake of radiotracer. No significant motion artifacts. Left ventricle function: Gated images demonstrate normal left ventricular wall thickening. No segmental wall motion abnormalities. No transient ischemic dilation; TID is 1.09 (normal less than 1.3). Left ventricle resting end diastolic volume is 106 mL. Left ventricle stress ejection fraction is 73%; normal range is above 45%. Myocardial perfusion: There is a small size, mild intensity fixed apical septal wall defect. No teversible perfusion defects. IMPRESSION: Likely low risk study without evidence of ischemia. The small size, mild intensity fixed apical septal wall defect may be consistent with scar however there is normal wall motion in this area and thus is more likely to be due to attenuation artifact. Normal LV function. Dictated by: Alyssa Welch D.O. on 09/26/2022 at 16:50 Approved by: Alyssa Welch D.O. on 09/26/2022 at 16:55
== END ==
PROVIDERS: PCP Family Medicine; Referring Provider Family Medicine; Visit Provider Family Medicine
DX: R06.09 Other forms of dyspnea (principal)
CPT/HCPCS: 78452; 93017; A9502; J2785

== ENCOUNTER → 2022-09-27 09:21 | Outpatient (CLI) | payer MEDICARE, OTHER, SELFPAY ==
[2021-05-28 16:12] VITALS: BMI 43.3
--- NOTE | 2022-09-27 | DI.US.S_ITS ---
PROCEDURE: US THYROID INDICATIONS: THYROIDITIS TECHNIQUE: Real-time scanning was performed of the thyroid gland, with image documentation. COMPARISON: None. FINDINGS: Right: Thyroid lobe measures of 4.4 x 1.4 x 1.7 cm, and is heterogenous in echotexture. Left: Thyroid lobe measures 4.1 x 1.6 x 1.3 cm, and is heterogenous in echotexture. Isthmus: 3.9 mm thick. Thyroid hypervascularity noted without focal nodule. 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 No nodules ACR TI-RADS definitions and recommendations: TI-RADS 1 (benign): 0 points. FNA not needed. TI-RADS 2 (not suspicious): 2 points. FNA not needed. TI-RADS 3 (mildly suspicious): 3 points. * FNA if 2.5 cm or larger, follow up if 1.5 cm or larger (at 1, 3, and 5 years). TI-RADS 4 (moderately suspicious): 4-6 points. * FNA if 1.5 cm or larger, follow up if 1 cm or larger (at 1, 2, 3, and 5 years). TI-RADS 5 (highly suspicious): 7 points or more. * FNA if 1 cm or larger, follow up if 0.5 cm or larger (every year for 5 years). Approved by: Kody Wasserman M.D. on 09/27/2022 at 13:21
== END ==
PROVIDERS: PCP Family Medicine; Referring Provider Family Medicine; Visit Provider Family Medicine
DX: E06.9 Thyroiditis, unspecified (principal)
CPT/HCPCS: 76536

== ENCOUNTER 2022-09-27 14:31 | Observation (INO) | payer MEDICARE, OTHER, SELFPAY ==
[2021-05-28 16:12] VITALS: BMI 43.3
[2022-09-27] VITALS (11 sets, daily range): BP systolic 99–136; BP diastolic 51–64; PULSE 78–100; RESP 20–26; TEMP 36.8–39.6; O2SAT 93–97; BMI 44.9; BMI 47.7
--- NOTE | 2022-09-27 14:48 | DI.RAD.S_ITS ---
PROCEDURE: XR CHEST 1V INDICATIONS: suspected sepsis TECHNIQUE: One view of the chest was acquired. COMPARISON: [facility], CR, XR CHEST 2V, 11/19/2021, 8:16. FINDINGS: Surgical changes and devices: Right shoulder arthroplasty. Lungs and pleura: Lungs are clear. No pleural effusions or pneumothorax. Mediastinum: Mediastinal contours appear normal. Heart size is normal. Bones and chest wall: No suspicious bony lesions. Overlying soft tissues appear unremarkable. IMPRESSION: No acute cardiopulmonary abnormality. Dictated by: Charles Jones M.D. on 09/27/2022 at 16:00 Approved by: Charles Jones M.D. on 09/27/2022 at 16:03
[2022-09-27] MEDS: ONDANSETRON 4 MG/2 ML INJ IV (15:12)
[2022-09-27] MEDS: SODIUM CHLORIDE 0.9% 1,000 ML 1000 ML IV (15:12)
[2022-09-27] MEDS: ACETAMINOPHEN 325 MG TABLET 975 MG PO (15:12)
[2022-09-27 15:25] LABS: RBC Urine 1-5/HPF (0-5/HPF)
[2022-09-27 15:26] LABS: Bacteria Urine Occasional (0-1); Culture Indicated Urine Specimen Cultured; Squamous Epithelial Cell Urine None Seen (0-5/HPF); WBC Urine 1-5/HPF (0-5/HPF)
[2022-09-27 15:29] LABS: Add Manual Diff / Slide Review NO; Basophils Absolute Auto 0 /uL (0-100); Basophils Percent Auto 0.3 % (0-2); Eosinophils Absolute Auto 0 /uL (0-450); Eosinophils Percent Auto 0.1 % (2-4); Hemoglobin 12.4 g/dL (12.0-16.0); Lymphocytes Absolute Auto 600 /uL (1100-4500); Lymphocytes Percent Auto 5.9 % (25-40); Mean Corpuscular HGB Conc 34.5 % (30-36); Mean Corpuscular Hemoglobin 31.1 PG (26-34); Monocytes Absolute Auto 300 /uL (0-900); Monocytes Percent Auto 3.2 % (3-14); Neutrophils Absolute Auto 8500 /uL (1500-7000); Neutrophils Percent Auto 90.5 % (50-75); Platelet Count 195 X10^3/uL (150-400); Red Cell Distribution Width 13.7 % (11.6-14.8); White Blood Cell Count 9.4 X10^3/uL (4.5-11.0)
[2022-09-27 15:35] LABS: Influenza A - CEPHEID Flu A NEGATIVE (NEGATIVE); Influenza B - CEPHEID Flu B NEGATIVE (NEGATIVE); Respiratory Syncytial Virus Negative (Negative)
[2022-09-27 15:37] LABS: INR 1.2 (0.9-1.3); Prothrombin Time 13.6 SECONDS (10.1-12.7)
[2022-09-27 15:38] LABS: COVID-19 CEPHEID 4-PLEX PCR Negative (Negative)
[2022-09-27 15:39] LABS: PTT Partial Thromboplastin Tim 32 SECONDS (26-36)
[2022-09-27 15:40] LABS: Lactate (Lactic Acid) 1.3 mmol/L (0.7-2.1)
[2022-09-27 15:41] LABS: Alanine Aminotransferase 34 IU/L (<35); Albumin 4.4 g/dL (3.5-5.0); Albumin Globulin Ratio 1.4 (1.0-2.8); Alkaline Phosphatase 83 U/L (38-126); Aspartate Aminotransferase 38 IU/L (14-36); Bilirubin Total 1.2 mg/dL (0.2-1.3); Blood Urea Nitrogen 14 mg/dL (7-17); Calcium 9.5 mg/dL (8.4-10.2); Carbon Dioxide 27 mmol/L (22-32); Chloride 105 mmol/L (98-107); Estimated Glomerular Filt Rate > 60 mL/min (>60); Globulin 3.1 g/dL (1.7-4.1); Glucose 110 mg/dL (80-110); HEMOLYSIS < 15 (0-50); Lipase 38 U/L (23-300); Potassium 3.8 mmol/L (3.4-5.1); Sodium 140 mmol/L (137-145); Total Protein 7.5 g/dL (6.3-8.2)
--- NOTE | 2022-09-27 16:01 | ED.SEPSIS ---
HPI - Sepsis General Chief Complaint: Fever Mode of arrival: Wheelchair Source: patient and family Limitations: no limitations Evaluation Sepsis Screen: Meets SIRS Criteria Sepsis Infection Criteria Present: None Narrative: 72-year-old female former smoker with history GERD, recent thyroid steady, shortness of breath and nausea presents with fever as high as 104 and shaking chills over the course of today and yesterday. She has had some nasal congestion but denies sore throat or active cough. She denies chest pain, nausea, vomiting or diarrhea. She denies current dysuria but was having dysuria, frequency and urgency earlier in the week. Review of Systems Review of Systems Narrative: GENERAL: See HPI HEENT: Denies sinus pain, ear pain, sore throat, difficulty swallowing, dizziness. RESPIRATORY: Denies dyspnea, cough, wheezing, hemoptysis, sputum. CARDIOVASCULAR: Denies chest pain, palpitations, orthopnea, edema, GASTROINTESTINAL: Denies nausea, vomiting, abdominal pain, diarrhea, constipation, melena. : Denies dysuria, frequency, incontinence, hematuria, urinary retention. MUSCULOSKELETAL: denies weakness, joint pain, or bony pain SKIN: Denies rash, skin lesions, or other NEUROLOGIC: Denies weakness, headache, numbness, change in speech, confusion, seizures, incoordination. PSYCHIATRIC: No concerning psychosocial issues. 12 point review of systems is negative except for those stated above Patient History Medical History Arthritis Depression Diverticulosis Morbid obesity with body mass index of 40.0-49.9 Obstructive sleep apnea of adult Osteoarthritis Snoring Surgical History H/O: hysterectomy (~1975) History of ankle surgery History of arthroplasty of right knee (~03/2012) History of arthroplasty of right shoulder (09/28/18) History of arthroscopy of both knees History of bilateral carpal tunnel release History of colonoscopy Hx of appendectomy (~1968) Hx of tonsillectomy Status post bilateral cataract extraction Status post epidural steroid injection Social History household members: spouse Smoking Status: Former smoker alcohol intake: current Smoking Status: Former smoker alcohol intake frequency: holidays/special occasions only Substance Use Type: does not use Exam Narrative Exam Narrative: GENERAL: 72[] year old patient appears stated age. Well-developed patient, in mild distress. HEAD: Atraumatic. Normocephalic. EYES: Pupils equal round and reactive. Extraocular motions intact. No scleral icterus. No injection or drainage. ENT: Nose without bleeding, purulent drainage. Throat without erythema, tonsillar hypertrophy or exudate. Airway patent. NECK: Trachea midline. Non tender CARDIOVASCULAR: Regular rate and rhythm without murmurs, gallops, or rubs. RESPIRATORY: Clear to auscultation. Breath sounds equal bilaterally. No wheezes, rales, or rhonchi. GASTROINTESTINAL: Abdomen soft, non-tender, nondistended. EXTREMITIES: No edema or joint tenderness. BACK: Nontender without deformity or crepitance. No flank tenderness. NEURO: AOx3. SKIN: No rash or erythema of visible areas Initial Vital Signs Initial Vital Signs: Vital Signs Temperature 103.2 F H 09/27/22 14:35 Pulse Rate 100 H 09/27/22 14:35 Respiratory Rate 24 09/27/22 14:35 Blood Pressure 136/64 09/27/22 14:35 Pulse Oximetry 95 09/27/22 14:35 Oxygen Delivery Method Room Air 09/27/22 14:35 Course Orders Ordered: ED Orders 09/27/22 14:45 Covid-19 + FLU A/B + RSV - PCR Stat 09/27/22 14:48 XR chest 1V Stat RT Consult Eval and Treat NOW 09/27/22 15:05 Complete Blood Count AUTO DIFF Stat Comprehensive Metabolic Panel Stat Free T4, Direct Thyroxine Stat Lactate (Lactic Acid) Stat Lipase Stat PTT Partial Thromboplastin [place] Stat Procalcitonin Stat Prothrombin Time INR Stat TSH [Thyroid Stimulating Hormone] Stat 09/27/22 15:10 Urine Culture Stat Urine Microscopic Stat 09/27/22 15:11 EKG-12 Lead Stat 09/27/22 15:45 Blood Culture Stat Acetaminophen (Acetaminophen 325 Mg Tablet) 650 mg PO Q6H PRN PRN Reason: Fever/Mild Pain (1-3) Hydrocodone Bitart/Acetaminophen (Hydrocodone/Acet 5/325 Tablet) 1 tab PO Q4H PRN PRN Reason: Pain, Moderate (4-6) Bisacodyl (Bisacodyl 10 Mg Supp) 10 mg MN DAILY PRN PRN Reason: Constipation Calcium Carbonate (Calcium Carbonate 500 Mg Tab) 1,000 mg PO Q4HR PRN PRN Reason: Dyspepsia Enoxaparin Sodium (Enoxaparin 40 Mg/0.4 Ml Syringe) 40 mg SUBCUT DAILY PRACHI Sodium Chloride (Normal Saline 0.9%) 1,365 mls @ 455 mls/hr 30 ml/kg infuse over 3 hr (1365 ml) IV NOW ONE Stop: 09/27/22 20:41 Last Admin: 09/27/22 18:37 Dose: 455 mls/hr Documented By: RB Naloxone HCl (Naloxone 0.4 Mg/Ml Vial) 0.2 mg IV Q2MIN PRN PRN Reason: Opiate Reversal Ondansetron HCl (Ondansetron 4 Mg Odt) 4 mg SL NOW PRN PRN Reason: Nausea And Vomiting Ondansetron HCl (Ondansetron 4 Mg Odt) 4 mg PO Q8HR PRN PRN Reason: Nausea And Vomiting Discontinued Medications Acetaminophen (Acetaminophen 325 Mg Tablet) 975 mg PO NOW ONE Stop: 09/27/22 14:50 Last Admin: 09/27/22 15:12 Dose: 975 mg Documented By: BRENNAN Sodium Chloride (Normal Saline 0.9%) 1,000 mls @ 1,000 mls/hr IV BOLUS ONE Stop: 09/27/22 15:44 Last Infusion: 09/27/22 17:44 Dose: 0 mls/hr Documented By: Admin: 09/27/22 15:12 Dose: 1,000 mls/hr Documented By: BRENNAN Ceftriaxone Sodium 2,000 mg/ (Sodium Chloride) 100 mls @ 200 mls/hr IV NOW ONE Stop: 09/27/22 17:43 Last Infusion: 09/27/22 18:38 Dose: 0 mls/hr Documented By: Admin: 09/27/22 18:07 Dose: 200 mls/hr Documented By: RB Ondansetron HCl (Ondansetron 4 Mg/2 Ml Inj) 4 mg IV NOW PRN PRN Reason: Nausea And Vomiting Last Admin: 09/27/22 15:12 Dose: 4 mg Documented By: BRENNAN Vital Signs Vital signs: Vital Signs - 8 hr 09/27/22 14:35 09/27/22 15:12 09/27/22 16:40 Temperature 103.2 F H 103.2 F H 99.4 F Pulse Rate 100 H 98 H Respiratory Rate 24 24 Blood Pressure 136/64 127/59 L Pulse Oximetry 95 94 Oxygen Delivery Method Room Air Room Air Sepsis Evaluation (ED) Triage Screening Sepsis Screen: Meets SIRS Criteria Level 1 - Infection Sepsis Infection Criteria Present: None Response It is my opinion that his patient have a likely infectious etiology for meeting sepsis criteria: Does Fluid calculation based on 30 mL/kg within 1hr of criteria: IBW used due to BMI>30 Antibiotics initiated within 1 hr of Sepis dx: No Tissue Perfusion Reassessed within 6 hrs of infusion start time: No MDM - Sepsis Lab Data 09/27/22 15:05 09/27/22 15:05 Labs: Lab Results 09/27/22 09/27/22 09/27/22 Range/Units 14:45 15:05 15:05 WBC 9.4 (4.5-11.0) X10^3/uL RBC 4.00 (4.0-5.2) X10^6/uL Hgb 12.4 (12.0-16.0) g/dL Hct 36.0 (36-46) % MCV 90.0 (80-100) fL MCH 31.1 (26-34) PG MCHC 34.5 (30-36) % RDW 13.7 (11.6-14.8) % Plt Count 195 (150-400) X10^3/uL Neut % (Auto) 90.5 H (50-75) % Lymph % (Auto) 5.9 L (25-40) % [place] % (Auto) 3.2 (3-14) % Eos % (Auto) 0.1 L (2-4) % Baso % (Auto) 0.3 (0-2) % Neut # (Auto) 8500 H (2437-7656) /uL Lymph # (Auto) 600 L (4821-5679) /uL [place] # (Auto) 300 (0-900) /uL Eos # (Auto) 0 (0-450) /uL Baso # (Auto) 0 (0-100) /uL PT 13.6 H (10.1-12.7) SECONDS INR 1.2 (0.9-1.3) APTT 32 (26-36) SECONDS Sodium (137-145) mmol/L Potassium (3.4-5.1) mmol/L Chloride (98-107) mmol/L Carbon Dioxide (22-32) mmol/L BUN (7-17) mg/dL Creatinine (0.52-1.04) mg/dL Estimated GFR (>60) mL/min BUN/Creatinine Ratio (6-22) Glucose (80-110) mg/dL Lactate (0.7-2.1) mmol/L Calcium (8.4-10.2) mg/dL Total Bilirubin (0.2-1.3) mg/dL AST (14-36) IU/L ALT (<35) IU/L Alkaline Phosphatase (38-126) U/L Total Protein (6.3-8.2) g/dL Albumin (3.5-5.0) g/dL Globulin (1.7-4.1) g/dL Albumin/Globulin Ratio (1.0-2.8) Lipase (23-300) U/L Procalcitonin (<0.5) ng/mL TSH (0.47-4.68) uIU/mL Free T4 (0.78-2.19) ng/dL Urine RBC (0-5/HPF) Urine WBC (0-5/HPF) Ur Squamous Epith Cells (0-5/HPF) Urine Bacteria (None) Ur Culture Indicated? SARS-CoV-2 (PCR) Negative (Negative) Influenza A (RT-PCR) Flu a negative (NEGATIVE) Influenza B (RT-PCR) Flu b negative (NEGATIVE) RSV (PCR) Negative (Negative) 09/27/22 09/27/22 09/27/22 Range/Units 15:05 15:05 15:05 WBC (4.5-11.0) X10^3/uL RBC (4.0-5.2) X10^6/uL Hgb (12.0-16.0) g/dL Hct (36-46) % MCV (80-100) fL MCH (26-34) PG MCHC (30-36) % RDW (11.6-14.8) % Plt Count (150-400) X10^3/uL Neut % (Auto) (50-75) % Lymph % (Auto) (25-40) % [place] % (Auto) (3-14) % Eos % (Auto) (2-4) % Baso % (Auto) (0-2) % Neut # (Auto) (7761-7137) /uL Lymph # (Auto) (3886-1485) /uL [place] # (Auto) (0-900) /uL Eos # (Auto) (0-450) /uL Baso # (Auto) (0-100) /uL PT (10.1-12.7) SECONDS INR (0.9-1.3) APTT (26-36) SECONDS Sodium 140 (137-145) mmol/L Potassium 3.8 (3.4-5.1) mmol/L Chloride 105 (98-107) mmol/L Carbon Dioxide 27 (22-32) mmol/L BUN 14 (7-17) mg/dL Creatinine 0.61 (0.52-1.04) mg/dL Estimated GFR > 60 (>60) mL/min BUN/Creatinine Ratio 23.0 H (6-22) Glucose 110 (80-110) mg/dL Lactate 1.3 (0.7-2.1) mmol/L Calcium 9.5 (8.4-10.2) mg/dL Total Bilirubin 1.2 (0.2-1.3) mg/dL AST 38 H (14-36) IU/L ALT 34 (<35) IU/L Alkaline Phosphatase 83 (38-126) U/L Total Protein 7.5 (6.3-8.2) g/dL Albumin 4.4 (3.5-5.0) g/dL Globulin 3.1 (1.7-4.1) g/dL Albumin/Globulin Ratio 1.4 (1.0-2.8) Lipase 38 (23-300) U/L Procalcitonin 0.30 (<0.5) ng/mL TSH 2.91 (0.47-4.68) uIU/mL Free T4 0.94 (0.78-2.19) ng/dL Urine RBC (0-5/HPF) Urine WBC (0-5/HPF) Ur Squamous Epith Cells (0-5/HPF) Urine Bacteria (None) Ur Culture Indicated? SARS-CoV-2 (PCR) (Negative) Influenza A (RT-PCR) (NEGATIVE) Influenza B (RT-PCR) (NEGATIVE) RSV (PCR) (Negative) 09/27/22 Range/Units 15:10 WBC (4.5-11.0) X10^3/uL RBC (4.0-5.2) X10^6/uL Hgb (12.0-16.0) g/dL Hct (36-46) % MCV (80-100) fL MCH (26-34) PG MCHC (30-36) % RDW (11.6-14.8) % Plt Count (150-400) X10^3/uL Neut % (Auto) (50-75) % Lymph % (Auto) (25-40) % [place] % (Auto) (3-14) % Eos % (Auto) (2-4) % Baso % (Auto) (0-2) % Neut # (Auto) (3616-0238) /uL Lymph # (Auto) (4811-5742) /uL [place] # (Auto) (0-900) /uL Eos # (Auto) (0-450) /uL Baso # (Auto) (0-100) /uL PT (10.1-12.7) SECONDS INR (0.9-1.3) APTT (26-36) SECONDS Sodium (137-145) mmol/L Potassium (3.4-5.1) mmol/L Chloride (98-107) mmol/L Carbon Dioxide (22-32) mmol/L BUN (7-17) mg/dL Creatinine (0.52-1.04) mg/dL Estimated GFR (>60) mL/min BUN/Creatinine Ratio (6-22) Glucose (80-110) mg/dL Lactate (0.7-2.1) mmol/L Calcium (8.4-10.2) mg/dL Total Bilirubin (0.2-1.3) mg/dL AST (14-36) IU/L ALT (<35) IU/L Alkaline Phosphatase (38-126) U/L Total Protein (6.3-8.2) g/dL Albumin (3.5-5.0) g/dL Globulin (1.7-4.1) g/dL Albumin/Globulin Ratio (1.0-2.8) Lipase (23-300) U/L Procalcitonin (<0.5) ng/mL TSH (0.47-4.68) uIU/mL Free T4 (0.78-2.19) ng/dL Urine RBC 1-5/hpf (0-5/HPF) Urine WBC 1-5/hpf (0-5/HPF) Ur Squamous Epith Cells None seen (0-5/HPF) Urine Bacteria Occasional (0-1) (None) Ur Culture Indicated? Specimen cultured SARS-CoV-2 (PCR) (Negative) Influenza A (RT-PCR) (NEGATIVE) Influenza B (RT-PCR) (NEGATIVE) RSV (PCR) (Negative) Urine Dip Bedside Urine Glucose Negative Bedside Urine Bilirubin - Negative Bedside Urine Ketone - Negative Urine Specific [place] 1.015 Bedside Urine Occult Blood + Bedside Urine pH 6.0 Bedside Urine Protein +/- 15 Bedside Urine Urobilinogen - Negative Bedside Urine Nitrite - Negative Bedside Urine Leukocytes - Negative Esterase MDM Narrative Medical decision making narrative: [72] year old patient presents with fever as high as 104, tachycardia, tachypnea and shaking chills Multiple etiologies for patient's symptoms considered including, but not limited to: [Sepsis due to pneumonia, UTI, bacteremia versus other] Prior Charts reviewed in our EMR Primary Historian: patient Labs reviewed and interpreted by myself: Largely reassuring without any obvious source Imaging reviewed: Chest x-ray clear Patient meets sepsis criteria with likely bacteremia, will require hospitalization for ongoing monitoring, IV antibiotics, likely until cultures return. Discussed with on-call provider, Dr. Lantigua, he is happy to accept on his service Discharge Plan Departure Patient Disposition: Admitted As Inpatient Clinical Impression: Sepsis Admit Date/Time: 09/27/22 17:52 Admit Provider: Efren Lantigua
[2022-09-27 16:18] LABS: Free T4, Direct Thyroxine 0.94 ng/dL (0.78-2.19)
[2022-09-27 16:32] LABS: Thyroid Stimulating Hormone 2.91 uIU/mL (0.47-4.68)
--- NOTE | 2022-09-27 17:44 | PC.NURSE ---
Just received this patient in Room 7. This RN completed the Normal saline infusion in the MAR as the bag was empty but was unable to verify the time it completed.
[2022-09-27] MEDS: cefTRIAXone 2,000 MG in SODIUM CHLORIDE 0.9% 100 ML 200 MG IV (18:07)
--- NOTE | 2022-09-27 18:15 | PM.HP.1 ---
History of Present Illness History of Present Illness Date Patient Seen: 09/27/22 Time Patient Seen: 18:15 Date of Onset of Symptoms: 09/27/22 Chief complaint: POST US/SOB/temp 104.6 Narrative: CC: shaking chills and fever Pt presented to ED for sudden acute illness. She had a nuke stress test yesterday but otherwise not much has been going on new with her. She has felt generally ok except for some mild [id number] dysuria over the last 3 days. She is not subject to frequent UTIs. She feels generally fine with regular appetite and no painful areas. In the ED she was found to have a normal white count but a notable neutrophilia as well as shaking rigors with fever to over 104. This impressive symptomatology resolved with oral tylenol however she does appear to be in early sepsis. No obvious source is evident at this time- blood and urine cultures pending. [facility] Medical History Arthritis Depression Diverticulosis Morbid obesity with body mass index of 40.0-49.9 Obstructive sleep apnea of adult Osteoarthritis Snoring Surgical History H/O: hysterectomy (~1975) History of ankle surgery History of arthroplasty of right knee (~03/2012) History of arthroplasty of right shoulder (09/28/18) History of arthroscopy of both knees History of bilateral carpal tunnel release History of colonoscopy Hx of appendectomy (~1968) Hx of tonsillectomy Status post bilateral cataract extraction Status post epidural steroid injection Social History household members: spouse Smoking Status: Former smoker alcohol intake: current Meds Home Medications and Allergies Home Medications Medication Instructions Recorded Confirmed Type Respironics [employer] CPAP #1 ea 07/23/18 10/16/20 History cholecalciferol (vitamin D3) 50 100 mcg PO BID 10/09/20 03/25/22 History mcg (2,000 unit) tablet (Vitamin D3) omeprazole magnesium 20 mg 20 mg PO BIDAC #60 tabs 03/25/22 03/25/22 Rx tablet,delayed release (Prilosec OTC) Allergies Allergy/AdvReac Type Severity Reaction Status Date / Time No Known Drug Allergies Allergy Verified 09/27/22 14:44 Review of Systems Review of Systems Narrative: all systems reviewed and negative except as otherwise documented in HPI Exam Vital Signs (past 8 hours): - 09/27/22 14:35 09/27/22 15:12 09/27/22 16:40 Temperature 103.2 F H 103.2 F H 99.4 F Pulse Rate 100 H 98 H Respiratory Rate 24 24 Blood Pressure 136/64 127/59 L Pulse Oximetry 95 94 Oxygen Delivery Method Room Air Room Air 09/27/22 18:10 Temperature 98.3 F Pulse Rate Respiratory Rate Blood Pressure Pulse Oximetry Oxygen Delivery Method Oxygen Delivery Method Room Air Narrative Exam Narrative: obese comfortable pleasant alert laying on [email or web address] Head: normocephalic and atraumatic Eyes General: appearance normal, both eyes and all related structures Resp Other: clear to auscultation bilaterally Cardio Other: mildly elevated rate, normal rhythm, S1/S2 GI Other: active bowel sounds nontender nondistended Skin General: no rashes or lesions noted Neuro General: patient alert, patient awake, patient oriented x3 and CN's II-XI intact bilaterally Extrem General: normal to inspection and full ROM Objective Labs 09/27/22 15:05 09/27/22 15:05 Labs: Laboratory Results - last 24 hr 09/27/22 09/27/22 09/27/22 14:45 15:05 15:05 WBC 9.4 RBC 4.00 Hgb 12.4 Hct 36.0 MCV 90.0 MCH 31.1 MCHC 34.5 RDW 13.7 Plt Count 195 Neut % (Auto) 90.5 H Lymph % (Auto) 5.9 L [place] % (Auto) 3.2 Eos % (Auto) 0.1 L Baso % (Auto) 0.3 Neut # (Auto) 8500 H Lymph # (Auto) 600 L [place] # (Auto) 300 Eos # (Auto) 0 Baso # (Auto) 0 PT 13.6 H INR 1.2 APTT 32 Sodium Potassium Chloride Carbon Dioxide BUN Creatinine Estimated GFR BUN/Creatinine Ratio Glucose Lactate Calcium Total Bilirubin AST ALT Alkaline Phosphatase Total Protein Albumin Globulin Albumin/Globulin Ratio Lipase Procalcitonin TSH Free T4 Urine RBC Urine WBC Ur Squamous Epith Cells Urine Bacteria Ur Culture Indicated? SARS-CoV-2 (PCR) Negative Influenza A (RT-PCR) Flu a negative Influenza B (RT-PCR) Flu b negative RSV (PCR) Negative 09/27/22 09/27/22 09/27/22 15:05 15:05 15:05 WBC RBC Hgb Hct MCV MCH MCHC RDW Plt Count Neut % (Auto) Lymph % (Auto) [place] % (Auto) Eos % (Auto) Baso % (Auto) Neut # (Auto) Lymph # (Auto) [place] # (Auto) Eos # (Auto) Baso # (Auto) PT INR APTT Sodium 140 Potassium 3.8 Chloride 105 Carbon Dioxide 27 BUN 14 Creatinine 0.61 Estimated GFR > 60 BUN/Creatinine Ratio 23.0 H Glucose 110 Lactate 1.3 Calcium 9.5 Total Bilirubin 1.2 AST 38 H ALT 34 Alkaline Phosphatase 83 Total Protein 7.5 Albumin 4.4 Globulin 3.1 Albumin/Globulin Ratio 1.4 Lipase 38 Procalcitonin 0.30 TSH 2.91 Free T4 0.94 Urine RBC Urine WBC Ur Squamous Epith Cells Urine Bacteria Ur Culture Indicated? SARS-CoV-2 (PCR) Influenza A (RT-PCR) Influenza B (RT-PCR) RSV (PCR) 09/27/22 15:10 WBC RBC Hgb Hct MCV MCH MCHC RDW Plt Count Neut % (Auto) Lymph % (Auto) [place] % (Auto) Eos % (Auto) Baso % (Auto) Neut # (Auto) Lymph # (Auto) [place] # (Auto) Eos # (Auto) Baso # (Auto) PT INR APTT Sodium Potassium Chloride Carbon Dioxide BUN Creatinine Estimated GFR BUN/Creatinine Ratio Glucose Lactate Calcium Total Bilirubin AST ALT Alkaline Phosphatase Total Protein Albumin Globulin Albumin/Globulin Ratio Lipase Procalcitonin TSH Free T4 Urine RBC 1-5/hpf Urine WBC 1-5/hpf Ur Squamous Epith Cells None seen Urine Bacteria Occasional (0-1) Ur Culture Indicated? Specimen cultured SARS-CoV-2 (PCR) Influenza A (RT-PCR) Influenza B (RT-PCR) RSV (PCR) Assessment & Plan Assessment & Plan narrative: #sepsis of unknown source Impressive response to tylenol however she is clearly sick based on labs and presentation- significant decline and severity and does meet sepsis criteria pending cultures, continue antipyretics prn, trend labs, will tx with rocephin 2g IV for now appropriate body mass fluid resuscitations in process #gerd mild, continue home omeprazole #MILLER stable continue home CPAP will bring it in code: DNR, ok to tube PCP: Darrell allergies: oxycodone DVT: lovenox and SCDs MDM: Evaristo [phone]
[2022-09-27] MEDS: SODIUM CHLORIDE 0.9% 1,365 ML 455 ML IV (18:37)
[2022-09-27] MEDS: ACETAMINOPHEN 325 MG TABLET 650 MG PO (21:20)
[2022-09-28 04:15] VITALS: BP 108/56; PULSE 68; RESP 20; TEMP 36.3; O2SAT 95
[2022-09-28 06:51] LABS: Add Manual Diff / Slide Review NO; Basophils Absolute Auto 0 /uL (0-100); Basophils Percent Auto 0.4 % (0-2); Eosinophils Absolute Auto 0 /uL (0-450); Eosinophils Percent Auto 0.4 % (2-4); Hemoglobin 10.4 g/dL (12.0-16.0); Lymphocytes Absolute Auto 1400 /uL (1100-4500); Lymphocytes Percent Auto 15.9 % (25-40); Mean Corpuscular HGB Conc 34.5 % (30-36); Mean Corpuscular Hemoglobin 31.5 PG (26-34); Mean Corpuscular Volume 91.2 fL (80-100); Monocytes Absolute Auto 1100 /uL (0-900); Monocytes Percent Auto 12.6 % (3-14); Neutrophils Absolute Auto 6100 /uL (1500-7000); Neutrophils Percent Auto 70.7 % (50-75); Platelet Count 179 X10^3/uL (150-400); Red Blood Cell Count 3.29 X10^6/uL (4.0-5.2); Red Cell Distribution Width 13.9 % (11.6-14.8); White Blood Cell Count 8.6 X10^3/uL (4.5-11.0)
[2022-09-28 07:03] LABS: Alanine Aminotransferase 33 IU/L (<35); Albumin 3.4 g/dL (3.5-5.0); Albumin Globulin Ratio 1.3 (1.0-2.8); Alkaline Phosphatase 61 U/L (38-126); Aspartate Aminotransferase 33 IU/L (14-36); Bilirubin Total 0.8 mg/dL (0.2-1.3); Blood Urea Nitrogen 11 mg/dL (7-17); Calcium 8.1 mg/dL (8.4-10.2); Carbon Dioxide 24 mmol/L (22-32); Chloride 111 mmol/L (98-107); Estimated Glomerular Filt Rate > 60 mL/min (>60); Globulin 2.6 g/dL (1.7-4.1); Glucose 98 mg/dL (80-110); HEMOLYSIS < 15 (0-50); Potassium 3.7 mmol/L (3.4-5.1); Sodium 141 mmol/L (137-145)
[2022-09-28 08:00] VITALS: BP 136/64; PULSE 76; RESP 18; TEMP 37.1; O2SAT 96
[2022-09-28] MEDS: ENOXAPARIN 40 MG/0.4 ML SYRINGE SUBCUT (08:48)
[2022-09-28] MEDS: ACETAMINOPHEN 325 MG TABLET 650 MG PO (08:48)
[2022-09-28 09:15] LABS: CTX-M Resistance Not Detected (Not Detect); IMP Resistance Not Detected (Not Detect); KPC Resistance Not Detected (Not Detect); NDM Resistance Not Detected (Not Detect); OXA-48-like Resistance Not Detected (Not Detect); mcr-1 Resistance Not Detected (Not Detect)
[2022-09-28 09:16] LABS: Acinetobacter calcoa-baumannii Not Detected (Not Detect); Bacteroides fragilis Not Detected (Not Detect); Candida albicans Not Detected (Not Detect); Candida auris Not Detected (Not Detect); Candida glabrata Not Detected (Not Detect); Candida krusei Not Detected (Not Detect); Candida parapsilosis Not Detected (Not Detect); Candida tropicalis Not Detected (Not Detect); Cryptococcus neoformans/gatti Not Detected (Not Detect); Enterobacter cloacae complex Not Detected (Not Detect); Enterobacterales DETECTED (Not Detect); Enterococcus faecalis Not Detected (Not Detect); Enterococcus faecium Not Detected (Not Detect); Haemophilus influenzae Not Detected (Not Detect); Klebsiella aerogenes Not Detected (Not Detect); Listeria monocytogenes Not Detected (Not Detect); Neisseria meningitidis Not Detected (Not Detect); Proteus species Not Detected (Not Detect); Pseudomonas aeruginosa Not Detected (Not Detect); Salmonella species Not Detected (Not Detect); Serratia marcescens Not Detected (Not Detect); Staphylococcus epidermidis Not Detected (Not Detect); Staphylococcus lugdunensis Not Detected (Not Detect); Staphylococcus species Not Detected (Not Detect); Stenotrophomonas maltophilia Not Detected (Not Detect); Streptococcus agalactiae (Gr B Not Detected (Not Detect); Streptococcus pneumonia Not Detected (Not Detect); Streptococcus pyogenes (Gr A) Not Detected (Not Detect); Streptococcus species Not Detected (Not Detect); VIM Resistance Not Detected (Not Detect)
--- NOTE | 2022-09-28 10:54 | CM.DANOTE ---
DCP: Patient is a 72yo F. Came to ED for fever of 104 for an unknown reason. Patient reported from provider they found E. Coli in her blood. PCP: Dr. Ramírez Payer: Medicare and [facility] BLOW UP OPERATOR reviewed EMR. From nurse, likely d/c today with no needs. BLOW UP OPERATOR entered room and introduced self and role. Patient appeared A/Ox4 and was accompanied by spouse/emergency contact, Evaristo ([phone]). Patient was pleasant and chatty. Patient reported she is waiting to finish one more bag of IV antibiotics and then will d/c this afternoon with oral antibiotics. Patient is excited to go home. Patient reports that she drives and is independent at baseline with ADLs. Spouse will drive her home. Plan: d/c home today with oral antibiotics with spouse. Likely with no needs. CM team will continue to follow. [place] Discharge Planning/Care Management CM Discharge Assessment Start: 09/28/22 10:52 Freq: Status: Active Protocol: Document 09/28/22 10:52 (Rec: 09/28/22 10:54 [id number]) Discharge Planning Assessment Assigned Boring Machine Operator MILDRED [place] DPOA/Assigned Designee Name Evaristo Sanches (spouse) Contact Information [phone] Advance Directives? No History Provided By Patient,Medical Record Prior Living Arrangements House Household Members spouse Type of transporation used prior to Drives own vehicle admit Independent with ADL's Yes Is patient alert and oriented? Yes Caregiver for Another No Comment Patient reports that she has all needed DME. Patient/Family Preference OP PT Therapy Barriers to Discharge No Discharge Plan Home Transportation Arrangement Spouse can provide transport. Referrals Initiated None needed Additional Comment None requested Whiteboard Updated in Patient Room with Yes name and ext. # of Boring Machine Operator Review Status In Process Next Review Type Continued Stay Review
--- NOTE | 2022-09-28 10:55 | PM.DS.1 ---
History of Present Illness History of Present Illness Date Patient Seen: 09/28/22 Time Patient Seen: 10:56 Date of Onset of Symptoms: 09/27/22 Chief complaint: POST US/SOB/temp 104.6 Narrative: CC: can i go home? shaking chills and fever Discharge Providers Provider Date of admission: 09/27/22 17:52 Discharge Date: 09/28/22 Primary care physician: Alma Rosa Ramírez MD Discharge provider: Efren Lantigua MD Summary Hospital Course Discharge Diagnosis: #sepsis #PCR-confirmed E coli bacteremia #gerd #MILLER Hospital Course: Pt presented to ED for sudden acute illness. She had a nuke stress test the day before but otherwise not much has been going on new with her, maybe feeling a bit run down the last week and some mild imf-qz-vigfby dysuria over the last 3 days. She is not subject to frequent UTIs. She feels generally fine with regular appetite and no painful areas. In the ED she was found to have a normal white count but a notable neutrophilia as well as shaking rigors with fever to over 104. This impressive symptomatology resolved promptly with oral tylenol however she does appear to be in early sepsis. No obvious source was evident on admission however blood and urine cultures showed e coli and enterobacter. She felt well enough to go home today will get another dose of rocephin and continue on levaquin. Status at Discharge Cognitive/behavioral status at discharge: at baseline, oriented Functional status at discharge: independent ambulation Overall status at discharge: patient is back to baseline Exam Vital Signs (past 8 hours): - 09/28/22 04:15 09/28/22 08:00 Temperature 97.3 F L 98.7 F Pulse Rate 68 76 Respiratory Rate 20 18 Blood Pressure 108/56 L 136/64 Pulse Oximetry 95 96 Oxygen Flow Rate 0 0 Oxygen Delivery Method Room Air Oxygen Flow Rate 0 Narrative Exam Narrative: cheerful alert laying in bed Const General: cooperative, healthy appearing, comfortable and well developed [facility] Head: normocephalic and atraumatic Resp Effort & Inspection: normal respiratory effort and able to speak in complete sentences Auscultation: clear to auscultation bilaterally Cardio Rate: regular rate Rhythm: regular rhythm Heart Sounds: S1 normal and S2 normal GI Palpation: soft Auscultation: normal bowel sounds Skin General: no rashes or lesions noted Neuro General: patient alert, patient awake, patient oriented x3, tone normal and moves all extremities Extrem General: no pedal edema Psych Speech and Movement: speech and movement normal Objective Labs 09/28/22 05:50 09/28/22 05:50 Labs: Laboratory Results - last 24 hr 09/27/22 09/27/22 09/27/22 14:45 15:05 15:05 WBC 9.4 RBC 4.00 Hgb 12.4 Hct 36.0 MCV 90.0 MCH 31.1 MCHC 34.5 RDW 13.7 Plt Count 195 Neut % (Auto) 90.5 H Lymph % (Auto) 5.9 L [place] % (Auto) 3.2 Eos % (Auto) 0.1 L Baso % (Auto) 0.3 Neut # (Auto) 8500 H Lymph # (Auto) 600 L [place] # (Auto) 300 Eos # (Auto) 0 Baso # (Auto) 0 PT 13.6 H INR 1.2 APTT 32 Sodium Potassium Chloride Carbon Dioxide BUN Creatinine Estimated GFR BUN/Creatinine Ratio Glucose Lactate Calcium Total Bilirubin AST ALT Alkaline Phosphatase Total Protein Albumin Globulin Albumin/Globulin Ratio Lipase Procalcitonin TSH Free T4 Urine RBC Urine WBC Ur Squamous Epith Cells Urine Bacteria Ur Culture Indicated? A.calcoaceticus-baumannii cmplx PCR Bacteroides fragilis Chasidy albicans (PCR) Chasidy auris (PCR) C. glabrata (PCR) C. krusei (PCR) C. parapsilosis (PCR) C. tropicalis (PCR) SARS-CoV-2 (PCR) Negative C. neoform/gattii (PCR) Enterobacterales (PCR) E. cloacae complex PCR Enterococc faecalis PCR Enterococc faecium PCR E. coli (PCR) H. influenzae (PCR) Influenza A (RT-PCR) Flu a negative Influenza B (RT-PCR) Flu b negative Klebsiella aerogenes (PCR) Klebsiella oxytoca PCR Klebsiella pneumoniae List. monocytogenes PCR N. meningitidis (PCR) Proteus species (PCR) RSV (PCR) Negative Salmonella spp. (PCR) Serratia marcescens PCR Staphylococcus sp PCR Staph aureus (PCR) mcr-1 Colistin Res Gene PCR Staph epidermidis (PCR) Staph lugdunensis PCR S. maltophilia (PCR) Streptococcus sp PCR Group A Strep (PCR) Strep agalactiae (PCR) Strep pneumoniae (PCR) P. aeruginosa (PCR) blaIMP Car res Gene PCR KPC-Carbap Res Gene PCR blaNDM Car Res Gene PCR OXA-48 Carbapenem Resis Gene (PCR) blaVIM Car Res Gene PCR CTX-M Gene Resistance (PCR) 09/27/22 09/27/22 09/27/22 15:05 15:05 15:05 WBC RBC Hgb Hct MCV MCH MCHC RDW Plt Count Neut % (Auto) Lymph % (Auto) [place] % (Auto) Eos % (Auto) Baso % (Auto) Neut # (Auto) Lymph # (Auto) [place] # (Auto) Eos # (Auto) Baso # (Auto) PT INR APTT Sodium 140 Potassium 3.8 Chloride 105 Carbon Dioxide 27 BUN 14 Creatinine 0.61 Estimated GFR > 60 BUN/Creatinine Ratio 23.0 H Glucose 110 Lactate 1.3 Calcium 9.5 Total Bilirubin 1.2 AST 38 H ALT 34 Alkaline Phosphatase 83 Total Protein 7.5 Albumin 4.4 Globulin 3.1 Albumin/Globulin Ratio 1.4 Lipase 38 Procalcitonin 0.30 TSH 2.91 Free T4 0.94 Urine RBC Urine WBC Ur Squamous Epith Cells Urine Bacteria Ur Culture Indicated? A.calcoaceticus-baumannii cmplx PCR Bacteroides fragilis Chasidy albicans (PCR) Chasidy auris (PCR) C. glabrata (PCR) C. krusei (PCR) C. parapsilosis (PCR) C. tropicalis (PCR) SARS-CoV-2 (PCR) C. neoform/gattii (PCR) Enterobacterales (PCR) E. cloacae complex PCR Enterococc faecalis PCR Enterococc faecium PCR E. coli (PCR) H. influenzae (PCR) Influenza A (RT-PCR) Influenza B (RT-PCR) Klebsiella aerogenes (PCR) Klebsiella oxytoca PCR Klebsiella pneumoniae List. monocytogenes PCR N. meningitidis (PCR) Proteus species (PCR) RSV (PCR) Salmonella spp. (PCR) Serratia marcescens PCR Staphylococcus sp PCR Staph aureus (PCR) mcr-1 Colistin Res Gene PCR Staph epidermidis (PCR) Staph lugdunensis PCR S. maltophilia (PCR) Streptococcus sp PCR Group A Strep (PCR) Strep agalactiae (PCR) Strep pneumoniae (PCR) P. aeruginosa (PCR) blaIMP Car res Gene PCR KPC-Carbap Res Gene PCR blaNDM Car Res Gene PCR OXA-48 Carbapenem Resis Gene (PCR) blaVIM Car Res Gene PCR CTX-M Gene Resistance (PCR) 09/27/22 09/27/22 09/28/22 15:05 15:10 05:50 WBC 8.6 RBC 3.29 L Hgb 10.4 L Hct 30.0 L MCV 91.2 MCH 31.5 MCHC 34.5 RDW 13.9 Plt Count 179 Neut % (Auto) 70.7 Lymph % (Auto) 15.9 L [place] % (Auto) 12.6 Eos % (Auto) 0.4 L Baso % (Auto) 0.4 Neut # (Auto) 6100 Lymph # (Auto) 1400 [place] # (Auto) 1100 H Eos # (Auto) 0 Baso # (Auto) 0 PT INR APTT Sodium Potassium Chloride Carbon Dioxide BUN Creatinine Estimated GFR BUN/Creatinine Ratio Glucose Lactate Calcium Total Bilirubin AST ALT Alkaline Phosphatase Total Protein Albumin Globulin Albumin/Globulin Ratio Lipase Procalcitonin TSH Free T4 Urine RBC 1-5/hpf Urine WBC 1-5/hpf Ur Squamous Epith Cells None seen Urine Bacteria Occasional (0-1) Ur Culture Indicated? Specimen cultured A.calcoaceticus-baumannii cmplx PCR Not detected Bacteroides fragilis Not detected Chasidy albicans (PCR) Not detected Chasidy auris (PCR) Not detected C. glabrata (PCR) Not detected C. krusei (PCR) Not detected C. parapsilosis (PCR) Not detected C. tropicalis (PCR) Not detected SARS-CoV-2 (PCR) C. neoform/gattii (PCR) Not detected Enterobacterales (PCR) Detected H E. cloacae complex PCR Not detected Enterococc faecalis PCR Not detected Enterococc faecium PCR Not detected E. coli (PCR) Detected H H. influenzae (PCR) Not detected Influenza A (RT-PCR) Influenza B (RT-PCR) Klebsiella aerogenes (PCR) Not detected Klebsiella oxytoca PCR Not detected Klebsiella pneumoniae Not detected List. monocytogenes PCR Not detected N. meningitidis (PCR) Not detected Proteus species (PCR) Not detected RSV (PCR) Salmonella spp. (PCR) Not detected Serratia marcescens PCR Not detected Staphylococcus sp PCR Not detected Staph aureus (PCR) Not detected mcr-1 Colistin Res Gene PCR Not detected Staph epidermidis (PCR) Not detected Staph lugdunensis PCR Not detected S. maltophilia (PCR) Not detected Streptococcus sp PCR Not detected Group A Strep (PCR) Not detected Strep agalactiae (PCR) Not detected Strep pneumoniae (PCR) Not detected P. aeruginosa (PCR) Not detected blaIMP Car res Gene PCR Not detected KPC-Carbap Res Gene PCR Not detected blaNDM Car Res Gene PCR Not detected OXA-48 Carbapenem Resis Gene (PCR) Not detected blaVIM Car Res Gene PCR Not detected CTX-M Gene Resistance (PCR) Not detected 09/28/22 05:50 WBC RBC Hgb Hct MCV MCH MCHC RDW Plt Count Neut % (Auto) Lymph % (Auto) [place] % (Auto) Eos % (Auto) Baso % (Auto) Neut # (Auto) Lymph # (Auto) [place] # (Auto) Eos # (Auto) Baso # (Auto) PT INR APTT Sodium 141 Potassium 3.7 Chloride 111 H Carbon Dioxide 24 BUN 11 Creatinine 0.55 Estimated GFR > 60 BUN/Creatinine Ratio 20.0 Glucose 98 Lactate Calcium 8.1 L Total Bilirubin 0.8 AST 33 ALT 33 Alkaline Phosphatase 61 Total Protein 6.0 L Albumin 3.4 L Globulin 2.6 Albumin/Globulin Ratio 1.3 Lipase Procalcitonin TSH Free T4 Urine RBC Urine WBC Ur Squamous Epith Cells Urine Bacteria Ur Culture Indicated? A.calcoaceticus-baumannii cmplx PCR Bacteroides fragilis Chasidy albicans (PCR) Chasidy auris (PCR) C. glabrata (PCR) C. krusei (PCR) C. parapsilosis (PCR) C. tropicalis (PCR) SARS-CoV-2 (PCR) C. neoform/gattii (PCR) Enterobacterales (PCR) E. cloacae complex PCR Enterococc faecalis PCR Enterococc faecium PCR E. coli (PCR) H. influenzae (PCR) Influenza A (RT-PCR) Influenza B (RT-PCR) Klebsiella aerogenes (PCR) Klebsiella oxytoca PCR Klebsiella pneumoniae List. monocytogenes PCR N. meningitidis (PCR) Proteus species (PCR) RSV (PCR) Salmonella spp. (PCR) Serratia marcescens PCR Staphylococcus sp PCR Staph aureus (PCR) mcr-1 Colistin Res Gene PCR Staph epidermidis (PCR) Staph lugdunensis PCR S. maltophilia (PCR) Streptococcus sp PCR Group A Strep (PCR) Strep agalactiae (PCR) Strep pneumoniae (PCR) P. aeruginosa (PCR) blaIMP Car res Gene PCR KPC-Carbap Res Gene PCR blaNDM Car Res Gene PCR OXA-48 Carbapenem Resis Gene (PCR) blaVIM Car Res Gene PCR CTX-M Gene Resistance (PCR) [facility] Medical History Arthritis Depression Diverticulosis Morbid obesity with body mass index of 40.0-49.9 Obstructive sleep apnea of adult Osteoarthritis Snoring Surgical History H/O: hysterectomy (~1975) History of ankle surgery History of arthroplasty of right knee (~03/2012) History of arthroplasty of right shoulder (09/28/18) History of arthroscopy of both knees History of bilateral carpal tunnel release History of colonoscopy Hx of appendectomy (~1968) Hx of tonsillectomy Status post bilateral cataract extraction Status post epidural steroid injection Social History household members: spouse Smoking Status: Former smoker alcohol intake: current Discharge Assessment & Plan Assessment and Plan Assessment: #sepsis with PCR-confirmed E coli bacteremia Good response to rocephin - neutrophilia subsiding she continues to feel great this morning eating ambulating no problems. Will plan to get one more dose of rocephin then discharge on levaquin for a week and f/u with us in clinic. s/p fluid resuscitation. #gerd mild, continue home omeprazole #MILLER stable continue home CPAP code: DNR, ok to tube PCP: Darrell allergies: oxycodone DVT: lovenox and SCDs MDM: Evaristo [phone] time spent: 45 min Discharge Plan Discharge Plan Patient Disposition: Home Discharge orders & Medications Prescriptions: New levofloxacin 750 mg tablet 750 mg PO DAILY Qty: 7 0RF Continued cholecalciferol (vitamin D3) [Vitamin D3] 50 mcg (2,000 unit) Tablet 100 mcg PO BID omeprazole magnesium [Prilosec OTC] 20 mg Tablet,Delayed Release (Dr/Ec) 20 mg PO BIDAC Qty: 60 3RF tolterodine 2 mg capsule,extended release 24hr 2 mg PO BID Vitamin B-12 50 mcg Tablet 50 mcg PO DAILY (DME) Respironics [employer] CPAP Qty: 1 Dose Instruction: As directed Patient Comments: Pressure: 9-13 cmH2O DME: [facility] Rx Instructions: As directed Follow up/Referrals: Alma Rosa Ramírze MD [Primary Care Provider] - Visit Report/Discharge Packet Stand Alone Forms: Patient Portal/API, Stroke Signs & Symptoms Discharge Data Primary Care Provider: Alma Rosa Ramírez
[2022-09-28] MEDS: cefTRIAXone 2,000 MG in SODIUM CHLORIDE 0.9% 100 ML 200 MG IV (13:00)
--- NOTE | 2022-10-16 19:30 | PC.NURSE ---
Late Entry: Ceftriaxone infusion initiated 09/28 at 1300 complete at 1331.
== END 2022-09-28 14:05 | disposition home or self-care (01) ==
LOC: ED 17:51 → AC 19:01
PROVIDERS: Nurse Practitioner Critical Care Medicine; Admitting Provider Family Medicine; Emergency Provider Emergency Medicine; PCP Family Medicine; Referring Provider Emergency Medicine; Visit Provider Family Medicine
DX: A41.51 Sepsis due to Escherichia coli [E. coli] (principal); B95.2 Enterococcus as the cause of diseases classified elsewhere; K21.9 Gastro-esophageal reflux disease without esophagitis; G47.33 Obstructive sleep apnea (adult) (pediatric); Z20.822 Contact with and (suspected) exposure to COVID-19; E66.01 Morbid (severe) obesity due to excess calories; E06.9 Thyroiditis, unspecified
CPT/HCPCS: 0241U; 36415; 71045; 76536; 80053; 81003; 81015; 83605; 83690; 84145; 84439; 84443; 85025; 85610; 85730; 87040; 87077; 87086; 87154; 87186; 93005; 93010; 96361; 96365; 96366; 96372; 96375; 99284; G0378; J0696; J1650; J2405

== ENCOUNTER → 2022-11-01 09:46 | Outpatient (CLI) | payer MEDICARE, OTHER, SELFPAY ==
[2022-09-27 20:56] VITALS: BMI 47.7
[2022-11-01 10:37] LABS: Hematocrit 35.4 % (36-46); Mean Corpuscular HGB Conc 33.9 % (30-36); Mean Corpuscular Volume 88.5 fL (80-100); Platelet Count 275 X10^3/uL (150-400); Red Cell Distribution Width 13.6 % (11.6-14.8); White Blood Cell Count 4.9 X10^3/uL (4.5-11.0)
[2022-11-01 11:03] LABS: Alanine Aminotransferase 34 IU/L (<35); Albumin 4.2 g/dL (3.5-5.0); Albumin Globulin Ratio 1.6 (1.0-2.8); Alkaline Phosphatase 76 U/L (38-126); Aspartate Aminotransferase 30 IU/L (14-36); BUN Creatinine Ratio 25.9 (6-22); Bilirubin Total 0.7 mg/dL (0.2-1.3); Blood Urea Nitrogen 14 mg/dL (7-17); C-Reactive Protein Quant 4.1 mg/dL (<1.0); Calcium 9.4 mg/dL (8.4-10.2); Carbon Dioxide 26 mmol/L (22-32); Chloride 104 mmol/L (98-107); Estimated Glomerular Filt Rate > 60 mL/min (>60); Globulin 2.7 g/dL (1.7-4.1); Glucose 91 mg/dL (80-110); HEMOLYSIS < 15 (0-50); Potassium 4.3 mmol/L (3.4-5.1); Sodium 137 mmol/L (137-145); Total Protein 6.9 g/dL (6.3-8.2)
[2022-11-01 11:17] LABS: Free T3, Triiodothyronine Free 3.62 pg/mL (2.77-5.27); Free T4, Direct Thyroxine 1.15 ng/dL (0.78-2.19)
[2022-11-01 11:30] LABS: Thyroid Stimulating Hormone 2.39 uIU/mL (0.47-4.68)
[2022-11-01 11:49] LABS: Vitamin B12 911 pg/mL (239-931)
[2022-11-02 09:30] LABS: Thyroid Peroxidase Antibodies 199 IU/mL (0-34)
[2022-11-02 18:40] LABS: Anti Thyroglobulin Antibody 13.4 IU/mL (0.0-0.9)
== END ==
PROVIDERS: PCP Family Medicine; Referring Provider Family Medicine; Visit Provider Family Medicine
DX: R78.81 Bacteremia (principal); F41.8 Other specified anxiety disorders; B96.20 Unspecified Escherichia coli [E. coli] as the cause of diseases classified elsewhere; R06.02 Shortness of breath; R50.9 Fever, unspecified; E06.9 Thyroiditis, unspecified; E53.8 Deficiency of other specified B group vitamins
CPT/HCPCS: 36415; 80053; 82607; 84439; 84443; 84481; 85027; 86140; 86376; 86800; 87040

== ENCOUNTER → 2022-11-25 08:01 | Outpatient (CLI) | payer MEDICARE, OTHER, SELFPAY ==
[2022-09-27 20:56] VITALS: BMI 47.7
--- NOTE | 2022-11-25 | DI.ECHO.S_ITS ---
[facility] +---------+ : : [address] [place] : : : : [id number] : : : : Phone: [phone]+ Echocardiogram Report + + :Name: ZOË QUINTERO Study Date: 11/25/2022 Height: 60 in : :[facility] ReadingLocation: Weight: 233 lb : : Gender: Female BSA: 2.0 m2 : :: 1950 Age: 72 yrs BP: 153/84 mmHg: :Reason For Study: Bacteremia : :Ordering Physician: DENNIS, : :VENU Performed By: Jazmine Benito : :Referring: VENU COLLINS : + + Interpretation Summary Normal left ventricle size with ejection fraction 60-65%. Diastolic parameters suggest a relaxation abnormality of the left ventricle, consistent with probable normal filling pressures. Mild aortic valve sclerosis. Mild mitral annular calcification. No vegetation seen. Comparison is made with the echocardiogram of 12/31/2021, there has been no significant change. Procedure: A two-dimensional transthoracic echocardiogram with color flow and Doppler was performed. The study quality was technically adequate. Comparison is made with the echocardiogram of 12/31/2021. The patient was in normal sinus rhythm during the exam. Left Ventricle: The left ventricle is normal in size. There is normal left ventricular wall thickness. The ejection fraction is estimated to be 60-65%. There are no focal wall motion abnormalities. Diastolic parameters suggest a relaxation abnormality of the left ventricle, consistent with probable normal filling pressures. Right Ventricle: The right ventricle is normal size. The right ventricular systolic function is normal. Atria: The left atrial size is normal. Right atrial size is normal. There is no Doppler evidence for an interatrial shunt. Mitral Valve: The mitral valve is normal. There is mild mitral annular calcification. There is no vegetation seen on the mitral valve. There is no mitral valve stenosis. There is trace mitral regurgitation. Aortic Valve: The aortic valve is trileaflet. The aortic valve opens well. There is mild aortic valve sclerosis. There is no aortic valvular vegetation. There is no aortic valve stenosis. No aortic regurgitation is present. Tricuspid Valve: The tricuspid valve is normal. There is no tricuspid valve vegetation. There is no tricuspid stenosis. There is trace tricuspid regurgitation. The right ventricular systolic pressure is estimated to be at least 20 mmHg based on an estimated right atrial pressure of 3 mm Hg. Pulmonic Valve: The pulmonic valve leaflets are thin and pliable; valve motion is normal. There is no obvious vegetation on the pulmonic valve. There is no pulmonic valvular stenosis. There is no pulmonic valvular regurgitation. Great Vessels: The aortic root is normal size. The ascending aorta is normal in size. The pulmonary artery is normal size. The IVC is of normal diameter and collapses greater than 50% with a sniff. This suggests a low right atrial pressure of 3 mm Hg. Pericardium/ Pleura There is a trivial pericardial effusion noted. There is no pleural effusion. MMode/2D Measurements & Calculations LVIDd: 4.7 cm LVOT diam: 1.8 cm LVIDs: 4.3 cm Ao root diam: 2.8 cm FS: 8.5 % asc Aorta Diam: 2.6 cm IVSd: 0.90 cm LVPWd: 1.1 cm LV thorpe. diameter/BSA (cm/m^2): 2.4 LV sys. diameter/BSA (cm/m^2): 2.2 LA A2 area: 21.1 cm2 RA long axis: 4.8 cm LA A4 area: 17.5 cm2 RA area: 14.9 cm2 LA length (vol): 5.8 cm RA vol: 39.1 ml LA vol: 53.9 ml RA : 19.6 ml/m2 LA vol index: 27.1 ml/m2 RVD1 (basal): 3.5 cm LVLs ap4: 5.5 cm LVLd ap2: 7.1 cm TAPSE_phl: 2.7 cm LVLs ap2: 5.6 cm Doppler Measurements & Calculations Ao V2 max: 183.0 cm/sec LVOT Max Rambo: 121.0 cm/sec Ao V2 mean: 119.0 cm/sec LV V1 max P.9 mmHg Ao max P.0 mmHg LV V1 VTI: 29.3 cm Ao mean P.0 mmHg YON(I,D): 1.8 cm2 Ao V2 VTI: 41.1 cm YON(V,D): 1.7 cm2 sev ratio: 0.71 YON indexed to BSA (cm^2/m^2): 0.91 MV E max rambo: 99.0 cm/sec TR max rambo: 208.0 cm/sec MV A max rambo: 123.0 cm/sec TR max P.4 mmHg MV E/A: 0.80 PA V2 max: 105.0 cm/sec Med Peak E' Rambo: 5.6 cm/sec PA V2 mean: 73.9 cm/sec E/E' med: 17.6 PA mean P.0 mmHg Lat Peak E' Rambo: 8.6 cm/sec PA pr(Accel): 34.0 mmHg E/E' lat: 11.5 E/e' average: 14.6 MV dec time: 0.46 sec SV(LVOT): 74.6 ml AV VR_phl: 0.66 YON(VTI)/BSA_phl: 0.91 MV P1/2t-pr_phl: 133.0 msec Electronically signed by: Frankie Candelaria on Reading Physician:11/25/2022 07:36 PM
== END ==
PROVIDERS: PCP Family Medicine; Referring Provider Family Medicine; Visit Provider Family Medicine
DX: I34.81 Nonrheumatic mitral (valve) annulus calcification (principal); I35.8 Other nonrheumatic aortic valve disorders; R78.81 Bacteremia
CPT/HCPCS: 93306

== ENCOUNTER → 2023-04-19 11:23 | Outpatient (CLI) | payer MEDICARE, OTHER, SELFPAY ==
[2022-09-27 20:56] VITALS: BMI 47.7
--- NOTE | 2023-04-19 | DI.MG.S_ITS ---
BILATERAL DIGITAL SCREENING MAMMOGRAM 3D/2D WITH CAD: 04/19/2023 CLINICAL: Routine screening. Family history of breast cancer. Comparison is made to exams dated: 04/16/2022 mammogram, 04/12/2021 mammogram, and 04/11/2020 mammogram - [facility]. Both breasts are heterogeneously dense, which may obscure small masses (category c / 51-75% glandular tissue). Current study was also evaluated with a Computer Aided Detection (CAD) system. No significant masses, calcifications, or other findings are seen in either breast. There has been no significant interval change. IMPRESSION: NEGATIVE There is no mammographic evidence of malignancy. A 1 year screening mammogram is recommended. Based on the Tyrer Cuzick model (a risk assessment model) the patient's lifetime risk is 10.7% and her 10 year risk is 8.0%. According to the ACR, ACS, and NCCN guidelines, an annual breast MRI exam along with mammogram is recommended if the patient's lifetime risk is 20% or greater. This exam was interpreted at Station ID: [id number]. NOTE: For mammograms, a report in lay terms will be sent to the patient. Approximately 15% of breast malignancies will not be visualized mammographically. In the management of a palpable breast mass, a negative mammogram must not discourage biopsy of a clinically suspicious lesion. Electronically Signed By: Mehul mejia/gilbert:04/22/2023 08:16:34 letter sent: Normal Exam ACR BI-RADS Category 1: Negative [id number]
== END ==
LOC: MAMMO 11:24
PROVIDERS: PCP Family Medicine; Referring Provider Family Medicine; Visit Provider Family Medicine
DX: Z12.31 Encounter for screening mammogram for malignant neoplasm of breast (principal); Z80.3 Family history of malignant neoplasm of breast
CPT/HCPCS: 77063; 77067

== ENCOUNTER → 2023-12-16 12:50 | Outpatient (CLI) | payer MEDICARE, OTHER, SELFPAY ==
[2023-11-25 10:05] VITALS: BMI 47.7
--- NOTE | 2023-12-18 10:42 | DIET.OUTPTC ---
Dietary Outpatient Consultation Note Consultation Date: 12/16/2023 Assessment: 73 y F referred to dietitian for type 2 diabetes with hyperglycemia. [place]obia looking for help with weight loss. Reports struggling with snacking. Is not on any medications for DM. PMH of diverticulosis and hiatal hernia. Avoids seeds and red sauce. Has started label reading for sodium and cut back on processed meals and deli meats. Notes buys energy dense snacks or adds them to grocery shopping cart making it difficult to make health conscious choices. Diet recall: 6am B: 2 c coffee, leftover salad or 1 c cherrios and reg milk 3p D: salad, veg, meat, rice or pasta post dinner: pie-apple or pumpkin Snacks between meals- potato chips fluids- only the coffee Activity: short walks, hx of knee replacement and painful arthritis in knees Ht: 5 Wt: 233 lb BMI: 45.5 UBW: - Nutrition Diagnosis: Excessive energy intake r/t energy dense snack choices aeb diet recall Interventions: Increase fluid intake -discussed importance and set goal Discussed including mid-day meal/snack Educ on label reading, macros, consistent carb, fiber source/amount Goals: 1. Protein source with breakfast 2. Mid-day snack fruit+protein (dominican yogurt/cottage cheese) 3. Start w/ 1 40 oz bottle of water with lemon - goal of 100 oz (30 mL x kg) 4. Talk w/ regarding purchasing snacks and use of supportive words EER: 11-12 CHO serving Monitoring/Evaluations: diet recall, labs Electronically Signed by: Cinthia Mckay 12/18/23 10:42 Clinical Dietitian [address] [id number]
== END ==
PROVIDERS: PCP Family Medicine; Referring Provider Family Medicine
DX: E11.65 Type 2 diabetes mellitus with hyperglycemia (principal); Z71.3 Dietary counseling and surveillance; Z68.42 Body mass index [BMI] 45.0-49.9, adult
CPT/HCPCS: 97802

== ENCOUNTER → 2024-04-19 07:46 | Outpatient (CLI) | payer MEDICARE, OTHER, SELFPAY ==
[2023-11-25 10:05] VITALS: BMI 47.7
--- NOTE | 2024-04-19 07:47 | DI.MG.S_ITS ---
BILATERAL DIGITAL SCREENING MAMMOGRAM 3D/2D WITH CAD: 04/19/2024 CLINICAL: Routine screening. Family history of breast cancer. Comparison is made to exams dated: 04/19/2023 mammogram, 04/16/2022 mammogram, and 04/12/2021 mammogram - [facility]. There are scattered areas of fibroglandular density (category b / 25%-50% glandular tissue). Current study was also evaluated with a Computer Aided Detection (CAD) system. No significant masses, calcifications, or other findings are seen in either breast. There has been no significant interval change. IMPRESSION: NEGATIVE There is no mammographic evidence of malignancy. A 1 year screening mammogram is recommended. Based on the Tyrer Cuzick model (a risk assessment model) the patient's lifetime risk is 5.2% and her 10 year risk is 4.2%. According to the ACR, ACS, and NCCN guidelines, an annual breast MRI exam along with mammogram is recommended if the patient's lifetime risk is 20% or greater. This exam was interpreted at Station ID: [id number]. NOTE: For mammograms, a report in lay terms will be sent to the patient. Approximately 15% of breast malignancies will not be visualized mammographically. In the management of a palpable breast mass, a negative mammogram must not discourage biopsy of a clinically suspicious lesion. Electronically Signed By: Jackelyn osborne/gilbert:04/19/2024 09:56:41 letter sent: Normal Exam ACR BI-RADS Category 1: Negative
== END ==
PROVIDERS: PCP Family Medicine; Referring Provider Family Medicine; Visit Provider Family Medicine
DX: Z12.31 Encounter for screening mammogram for malignant neoplasm of breast (principal); Z80.3 Family history of malignant neoplasm of breast
CPT/HCPCS: 77063; 77067

== ENCOUNTER → 2024-07-15 10:14 | Outpatient (CLI) | payer MEDICARE, OTHER, SELFPAY ==
[2023-11-25 10:05] VITALS: BMI 47.7
--- NOTE | 2024-07-15 10:16 | DI.RAD.S_ITS ---
PROCEDURE: XR DEXA AXIAL SKELETON INDICATIONS: OSTEOPENIA,DISORDERS OF BONE DENSITY COMPARISON: [facility], , XR DEXA AXIAL SKELETON, 11/21/2021, 8:51. [facility], , XR DEXA AXIAL SKELETON, 10/12/2019, 13:59. FINDINGS: Lumbar Spine: Bone mineral density 1.052 g/cm2, T score 0, statistically increased by 4 percent. Left Femoral Neck: Bone mineral density 0.704 g/cm2, T score -1.3. Left Hip: Bone mineral density 0.926 g/cm2, T score -0.1, statistically unchanged. Fracture Risk Calculation (when applicable): 10-year fracture risk of a major osteoporotic fracture 8.8 percent and of a hip fracture 1.3 percent. (T score greater or equal to -1.0 to: NORMAL) (T score from -1.1 to -2.4: OSTEOPENIA) (T score less than or equal to -2.5: OSTEOPOROSIS) IMPRESSION: Osteopenia. Statistically increased bone mineralization of the lumbar spine. Follow-up guidelines as follows: Osteoporosis: Consider a repeat DEXA and Vertebral Fracture Assessment (VFA) exam in 2 years or sooner if medically necessary, to reassess this patient's status. Osteopenia: Consider a repeat DEXA in 2-3 years to reassess this patient's status, or if there is a new clinical indication. Normal: Consider a repeat DEXA in 5 years or sooner, or if there is a new clinical indication. All treatment decisions require clinical judgment and consideration of individual patient factors, including patient preferences, comorbidities, previous drug use, risk factors not captured in the FRAX model (e.g., frailty, falls, vitamin D deficiency, increased bone turnover, interval significant decline in bone density ) and possible under- or over-estimation of fracture risk by FRAX. In addition, the NOF Guide recommends that FDA-approved medical therapies be considered in postmenopausal women and men age >= 50 years with a: * Hip or vertebral (clinical or morphometric) fracture * T-score of <=-2.5 at the spine or hip * Ten-year fracture probability by FRAX of >= 3% for hip fracture or >=20% for major osteoporotic fracture. Dictated by: Ayan Alves M.D. on 07/15/2024 at 12:21 Approved by: Ayan Alves M.D. on 07/15/2024 at 12:22
== END ==
PROVIDERS: PCP Family Medicine; Referring Provider Family Medicine; Visit Provider Family Medicine
DX: M85.89 Other specified disorders of bone density and structure, multiple sites (principal)
CPT/HCPCS: 77080